=== PATIENT | female | born 1990 | race Caucasian/White ===

== ENCOUNTER 2017-02-07 14:16 | Emergency (ER) | payer BC, MEDICAID, OTHER ==
[~2017-02-07] VITALS: Ht 160 cm; Wt 72.6 kg
[~2017-02-07 14:16] MED LIST: ADDE10CA3; ADDE10TA OR; ADDERALL PO; ANTIDEPRESSANT; CELE20TA; CLON0.5T PO; DOCU10CA PO; EFFE75CA75 PO; NATURAL LAXATIVE PO; ORTHTAB5 PO; PRENTAB7 PO; PRIL20CA9 PO
[2017-02-07] MEDS ORDERED: CLEO300C2 PO (16:07)
[2017-02-07] MEDS ORDERED: NORCOTAB PO (16:07)
[2017-02-07] MEDS ORDERED: IBUP600T26 PO (16:07)
[2017-02-07] MEDS ORDERED: NORCO, ANEXSIA 5/325MG TABLET (HYDROcodone/ACETAMINOPHEN) PO ONE (16:15)
[2017-02-07] MEDS ORDERED: CLINDAMYCIN 300 MG in APPROPRIATE DILUENT 1 EA IV ONE (16:15)
[2017-02-07] MEDS ORDERED: IBUPROFEN 600 MG TAB PO ONE (16:15)
[2017-02-07] MEDS ORDERED: CLINDAMYCIN 150 MG CAP PO ONE (16:30)
[2017-02-07 16:33] VITALS: BP 131/86
== END 2017-02-07 16:38 | disposition home or self-care (01) ==
LOC: M ED 15:38
DX: K03.9 Disease of hard tissues of teeth, unspecified (principal); G50.1 Atypical facial pain; F17.200 Nicotine dependence, unspecified, uncomplicated; B19.20 Unspecified viral hepatitis C without hepatic coma; Z88.0 Allergy status to penicillin; Z91.040 Latex allergy status

== ENCOUNTER → 2017-03-09 | Outpatient (CLI) | payer MEDICAID ==
[~2017-03-09] MED LIST changes: +CLEO300C2 PO; +IBUP600T26 PO; +NORCOTAB PO
== END ==
LOC: M OUTALCOH 07:53
PROVIDERS: ATTEND Psychiatry & Neurology Psychiatry
DX: F10.10 Alcohol abuse, uncomplicated (principal); F15.20 Other stimulant dependence, uncomplicated

== ENCOUNTER 2017-03-18 10:30 | Outpatient (RCR) | payer MEDICAID ==
[~2017-03-18 10:30] MED LIST changes: +IBUP-1022 PO; -IBUP600T26 PO; +ORTHTAB14 PO; -ORTHTAB5 PO
== END 2017-03-25 ==
LOC: M OUTALCOH 10:30
PROVIDERS: ATTEND Psychiatry & Neurology Psychiatry
DX: F10.20 Alcohol dependence, uncomplicated (principal); F15.20 Other stimulant dependence, uncomplicated

== ENCOUNTER 2017-10-22 15:35 | Emergency (ER) | payer MEDICAID, OTHER ==
[2017-10-22 16:21] LABS: HEMATOCRIT 42.7 % (36.0-47.0); HEMOGLOBIN 14.8 g/dl (12.0-16.0); MEAN CORPUSCULAR HEMOGLOBIN 31.1 pg (27.0-33.0); MEAN CORPUSCULAR HGB CONC 34.7 g/dl (32.0-36.5); MEAN CORPUSCULAR VOLUME 89.7 fl (80.0-96.0); PLATELET COUNT, AUTOMATED 367 10^3/uL (150-450); RED BLOOD COUNT 4.76 10^6/uL (4.00-5.40); RED CELL DISTRIBUTION WIDTH 12.6 % (11.5-14.5)
[2017-10-22 16:41] LABS: CONTROL LINE HCG INT CTR LINE PRESENT; HCG, SERUM QUALITATIVE NEGATIVE (NEGATIVE)
[2017-10-22] MEDS: THIAMINE 100 MG TAB PO (16:45)
[2017-10-22] MEDS: NS 1,000 ML IV ×3 (16:46→23:07)
[2017-10-22 16:52] LABS: ALBUMIN 3.9 GM/DL (3.2-5.2); ALBUMIN/GLOBULIN RATIO 1.18 (1.00-1.93); ALKALINE PHOSPHATASE 119 U/L (45-117); ALT/SGPT 28 U/L (12-78); ANION GAP 9 MEQ/L (8-16); AST/SGOT 20 U/L (7-37); BILIRUBIN,DIRECT < 0.1 MG/DL (0.0-0.2); BILIRUBIN,TOTAL 0.2 MG/DL (0.2-1.0); BLOOD UREA NITROGEN 8 MG/DL (7-18); CALCIUM LEVEL 8.6 MG/DL (8.5-10.1); CARBON DIOXIDE LEVEL 28 MEQ/L (21-32); CHLORIDE LEVEL 110 MEQ/L (98-107); CREATININE FOR GFR 0.71 MG/DL (0.55-1.02); ETHYL ALCOHOL (ETHANOL) 0.323 % (0.000-0.010); GLOMERULAR FILTRATION RATE > 60.0 (>60); GLUCOSE, FASTING 93 MG/DL (70-100); POTASSIUM SERUM 4.4 MEQ/L (3.5-5.1); SALICYLATE LEVEL < 1.7 MG/DL (5.0-30.0); SODIUM LEVEL 147 MEQ/L (136-145); TOTAL PROTEIN 7.2 GM/DL (6.4-8.2)
[2017-10-22 16:55] LABS: ACETAMINOPHEN LEVEL < 2.0 UG/ML (10.0-30.0)
[2017-10-22 17:33] LABS: AMPHETAMINES LEVEL URINE NEGATIVE (NEGATIVE); BARBITURATES URINE NEGATIVE (NEGATIVE); BENZODIAZEPINES URINE NEGATIVE (NEGATIVE); CANNABINOIDS URINE NEGATIVE (NEGATIVE); COCAINE METABOLITE URINE NEGATIVE (NEGATIVE); METHADONE URINE NEGATIVE (NEGATIVE); OPIATES URINE NEGATIVE (NEGATIVE); PHENCYCLIDINE URINE NEGATIVE (NEGATIVE)
[2017-10-23] MEDS: OXAZEPAM 15 MG CAP PO (00:06)
== END 2017-10-23 03:59 | disposition home or self-care (01) ==
LOC: M ED 10-23 03:59
DX: F10.129 Alcohol abuse with intoxication, unspecified (principal); F19.10 Other psychoactive substance abuse, uncomplicated; Z86.19 Personal history of other infectious and parasitic diseases; Z91.5 Personal history of self-harm; Z79.899 Other long term (current) drug therapy; Z88.0 Allergy status to penicillin; Z91.040 Latex allergy status
CPT/HCPCS: G0480

== ENCOUNTER 2018-03-26 14:05 | Inpatient (IN) | payer OTHER, MEDICAID ==
[2018-03-26] MEDS: KETOROLAC 30 MG/ML VIAL (J1885) IV (15:49)
[2018-03-26] MEDS: ONDANSETRON 4MG/2ML VIAL (J2405) IV (15:49)
[2018-03-26] MEDS: NS 1,000 ML IV ×2 (15:49→21:27)
[2018-03-26] MEDS: GASTROGRAFIN SOLUTION 30ML PO ×2 (15:56→16:30)
[2018-03-26 16:00] LABS: BASO % 0.3 % (0.0-1.0); EOS # 0.2 10^3/uL (0.0-0.50); EOS % 1.7 % (0.0-3.0); HEMATOCRIT 38.5 % (36.0-47.0); HEMOGLOBIN 12.8 g/dl (12.0-15.5); IMMATURE GRANULOCYTE % 0.7 % (0-3.0); LYMPH # 2.7 10^3/uL (1.5-6.5); LYMPH % 21.2 % (24.0-44.0); MEAN CORPUSCULAR HGB CONC 33.2 g/dl (32.0-36.5); MEAN CORPUSCULAR VOLUME 93.2 fl (80.0-96.0); MONO # 0.6 10^3/uL (0.0-0.8); MONO % 4.9 % (0.0-5.0); NEUTROPHILS # 9.2 10^3/uL (1.8-7.7); NEUTROPHILS % 71.2 % (36.0-66.0); PLATELET COUNT, AUTOMATED 227 10^3/uL (150-450); RED BLOOD COUNT 4.13 10^6/uL (4.00-5.40); RED CELL DISTRIBUTION WIDTH 12.9 % (11.5-14.5); WHITE BLOOD COUNT 12.9 10^3/uL (4.0-10.0)
[2018-03-26 16:05] LABS: KETONE, URINE AUTO RFX TRACE mg/dL (NEGATIVE); LEUKOCYTE ESTERASE UR AUTO RFX 1+ (NEGATIVE); MUCUS, URINE RFX SMALL (NEGATIVE); NITRITE, URINE AUTO RFX NEGATIVE (NEGATIVE); RBC, URINE AUTO RFX 6 /HPF (0-3); SPECIFIC GRAVITY UR AUTO RFX 1.027 (1.002-1.035); SQUAM EPITHELIAL CELL UR AURFX 31 /HPF (0-6); WBC, URINE AUTO RFX 19 /HPF (0-3)
[2018-03-26 16:20] LABS: ERYTHROCYTE SEDIMENTATION RATE 67 mm/hr (0-20)
[2018-03-26 16:29] LABS: LACTIC ACID SEPSIS PROTOCOL 1.9 MMOL/L (0.4-2.0)
[2018-03-26 16:37] LABS: ALBUMIN 3.2 GM/DL (3.2-5.2); ALBUMIN/GLOBULIN RATIO 0.78 (1.00-1.93); ALKALINE PHOSPHATASE 96 U/L (45-117); ALT/SGPT 59 U/L (12-78); ANION GAP 9 MEQ/L (8-16); AST/SGOT 26 U/L (7-37); BILIRUBIN,TOTAL 0.6 MG/DL (0.2-1.0); BLOOD UREA NITROGEN 9 MG/DL (7-18); CALCIUM LEVEL 8.4 MG/DL (8.5-10.1); CARBON DIOXIDE LEVEL 25 MEQ/L (21-32); CHLORIDE LEVEL 108 MEQ/L (98-107); CREATININE FOR GFR 0.86 MG/DL (0.55-1.30); GLOMERULAR FILTRATION RATE > 60.0 (>60); GLUCOSE, FASTING 101 MG/DL (70-100); LIPASE 63 U/L (73-393); POTASSIUM SERUM 3.7 MEQ/L (3.5-5.1); SODIUM LEVEL 142 MEQ/L (136-145); TOTAL PROTEIN 7.3 GM/DL (6.4-8.2)
[2018-03-26] MEDS ORDERED: ISOVUE-370 76% 100ML VIAL (Q9967) As Ordered (16:52)
[2018-03-26] MEDS: diphenhydrAMINE INJ 50MG/ML VIAL (J1200) IV (17:10)
[2018-03-26 17:22] LABS: CONTROL LINE HCG INT CTR LINE PRESENT; HCG, SERUM QUALITATIVE NEGATIVE (NEGATIVE)
[2018-03-26] MEDS: LevoFLOXacin IV 750 MG in APPROPRIATE DILUENT 1 EA IV (19:42)
[2018-03-26] MEDS ORDERED: ACETAMINOPHEN TAB 650MG DOSE (2X325MG) PO (20:45)
[2018-03-26] MEDS ORDERED: ONDANSETRON 4MG/2ML VIAL (J2405) IV (20:45)
[2018-03-26] MEDS ORDERED: cloNIDine 0.1 MG TAB PO (22:00)
[2018-03-26] MEDS: cefTRIAXone SOD 1 GM in D5W MINI-BAG PLUS 50 ML IV (22:49)
[2018-03-26] MEDS: OLANZapine 5 MG TAB PO (23:07)
[2018-03-26] MEDS: GABAPENTIN 300 MG CAP PO (23:07)
[2018-03-26] MEDS: metroNIDAZOLE 500 MG in APPROPRIATE DILUENT 1 EA IV (23:35)
[2018-03-27] MEDS: NS 1,000 ML IV ×2 (06:59→18:34)
[2018-03-27] MEDS: metroNIDAZOLE 500 MG in APPROPRIATE DILUENT 1 EA IV ×3 (06:59→23:15)
[2018-03-27 07:00] LABS: BASO % 0.4 % (0.0-1.0); EOS # 0.3 10^3/uL (0.0-0.50); EOS % 3.5 % (0.0-3.0); HEMATOCRIT 34.5 % (36.0-47.0); HEMOGLOBIN 11.5 g/dl (12.0-15.5); IMMATURE GRANULOCYTE % 0.6 % (0-3.0); LYMPH # 1.8 10^3/uL (1.5-6.5); LYMPH % 22.2 % (24.0-44.0); MEAN CORPUSCULAR HEMOGLOBIN 31.1 pg (27.0-33.0); MEAN CORPUSCULAR HGB CONC 33.3 g/dl (32.0-36.5); MEAN CORPUSCULAR VOLUME 93.2 fl (80.0-96.0); MONO # 0.5 10^3/uL (0.0-0.8); NEUTROPHILS # 5.5 10^3/uL (1.8-7.7); NEUTROPHILS % 67.3 % (36.0-66.0); PLATELET COUNT, AUTOMATED 209 10^3/uL (150-450); RED CELL DISTRIBUTION WIDTH 12.7 % (11.5-14.5); WHITE BLOOD COUNT 8.1 10^3/uL (4.0-10.0)
[2018-03-27 07:21] LABS: ANION GAP 9 MEQ/L (8-16); BLOOD UREA NITROGEN 10 MG/DL (7-18); CALCIUM LEVEL 8.1 MG/DL (8.5-10.1); CARBON DIOXIDE LEVEL 23 MEQ/L (21-32); CHLORIDE LEVEL 113 MEQ/L (98-107); CREATININE FOR GFR 0.82 MG/DL (0.55-1.30); GLOMERULAR FILTRATION RATE > 60.0 (>60); GLUCOSE, FASTING 103 MG/DL (70-100); POTASSIUM SERUM 3.7 MEQ/L (3.5-5.1); SODIUM LEVEL 145 MEQ/L (136-145)
[2018-03-27] MEDS: cefTRIAXone SOD 1 GM in D5W MINI-BAG PLUS 50 ML IV ×2 (10:00→21:42)
[2018-03-27] MEDS: GABAPENTIN 300 MG CAP PO ×3 (10:01→21:41)
[2018-03-27] MEDS: FLUoxetine 20 MG CAP PO (10:01)
[2018-03-27] MEDS: lamoTRIgine 100MG TAB PO (10:01)
[2018-03-27] MEDS: ENOXAPARIN 40 MG/0.4 ML SYRINGE (J1650) SC (10:01)
[2018-03-27 15:55] LABS: AMPHETAMINES URINE REFLEX NEGATIVE (NEGATIVE); BARBITURATES URINE REFLEX NEGATIVE (NEGATIVE); BENZODIAZEPINES URINE REFLEX NEGATIVE (NEGATIVE); CANNABINOIDS URINE REFLEX NEGATIVE (NEGATIVE); COCAINE METABOLITE URINE REFLE NEGATIVE (NEGATIVE); METHADONE URINE REFLEX NEGATIVE (NEGATIVE); PHENCYCLIDINE URINE REFLEX NEGATIVE (NEGATIVE)
[2018-03-27 16:16] LABS: OPIATES URINE REFLEX PENDING CONFIRMATION (NEGATIVE)
[2018-03-27] MEDS: OLANZapine 5 MG TAB PO (21:41)
[2018-03-28 06:28] LABS: BASO # 0.1 10^3/uL (0.0-0.2); BASO % 0.7 % (0.0-1.0); EOS # 0.4 10^3/uL (0.0-0.50); EOS % 4.4 % (0.0-3.0); HEMATOCRIT 33.1 % (36.0-47.0); HEMOGLOBIN 11.2 g/dl (12.0-15.5); IMMATURE GRANULOCYTE % 1.2 % (0-3.0); LYMPH # 2.2 10^3/uL (1.5-6.5); LYMPH % 25.8 % (24.0-44.0); MEAN CORPUSCULAR HEMOGLOBIN 31.3 pg (27.0-33.0); MEAN CORPUSCULAR HGB CONC 33.8 g/dl (32.0-36.5); MEAN CORPUSCULAR VOLUME 92.5 fl (80.0-96.0); MONO # 0.5 10^3/uL (0.0-0.8); NEUTROPHILS # 5.3 10^3/uL (1.8-7.7); NEUTROPHILS % 61.9 % (36.0-66.0); PLATELET COUNT, AUTOMATED 230 10^3/uL (150-450); RED BLOOD COUNT 3.58 10^6/uL (4.00-5.40); RED CELL DISTRIBUTION WIDTH 12.7 % (11.5-14.5); WHITE BLOOD COUNT 8.6 10^3/uL (4.0-10.0)
[2018-03-28] MEDS: metroNIDAZOLE 500 MG in APPROPRIATE DILUENT 1 EA IV (06:40)
[2018-03-28 06:43] LABS: ANION GAP 10 MEQ/L (8-16); BLOOD UREA NITROGEN 2 MG/DL (7-18); CALCIUM LEVEL 8.1 MG/DL (8.5-10.1); CARBON DIOXIDE LEVEL 24 MEQ/L (21-32); CHLORIDE LEVEL 111 MEQ/L (98-107); CREATININE FOR GFR 0.67 MG/DL (0.55-1.30); GLOMERULAR FILTRATION RATE > 60.0 (>60); GLUCOSE, FASTING 120 MG/DL (70-100); HCG, SERUM QUANTITATIVE < 1.0 MIU/ML; POTASSIUM SERUM 3.3 MEQ/L (3.5-5.1); SODIUM LEVEL 145 MEQ/L (136-145)
[2018-03-28] MEDS: FLUoxetine 20 MG CAP PO (09:38)
[2018-03-28] MEDS: GABAPENTIN 300 MG CAP PO (09:38)
[2018-03-28] MEDS: lamoTRIgine 100MG TAB PO (09:38)
[2018-03-28] MEDS: ENOXAPARIN 40 MG/0.4 ML SYRINGE (J1650) SC (09:39)
[2018-03-28] MEDS: cefTRIAXone SOD 1 GM in D5W MINI-BAG PLUS 50 ML IV (09:56)
== END 2018-03-28 13:00 | disposition home or self-care (01) | DRG 137 ==
LOC: M ED 14:05 → M ED INP 20:37 → M MS5PR 22:15
DX: J69.0 Pneumonitis due to inhalation of food and vomit (principal); K76.0 Fatty (change of) liver, not elsewhere classified; N20.0 Calculus of kidney; F11.10 Opioid abuse, uncomplicated; F31.9 Bipolar disorder, unspecified; B18.2 Chronic viral hepatitis C; Z79.899 Other long term (current) drug therapy; Z88.0 Allergy status to penicillin; Z91.040 Latex allergy status

== ENCOUNTER 2018-10-01 14:57 | Emergency (ER) | payer OTHER ==
[~2018-10-01] VITALS: Ht 160 cm; Wt 77.3 kg
[~2018-10-01 14:57] MED LIST changes: +ACAM0.05 PO; +ADDE30CA3 PO; +CEFU50TA PO; +CLON-412 PO; -CLON0.5T PO; +CLON0.5T8 PO; +EFFE75CA2 PO; -EFFE75CA75 PO; +FLAG500T PO; +GABA-843 PO; +LAMI1TAB7 PO; +ORTH1TAB16 PO; -ORTHTAB14 PO; +OXAZ30CA2 PO; +PROZ20CA11 PO; +ZYPR5TAB2 PO
[2018-10-01] MEDS ORDERED: SUBO12MI SL (15:03)
[2018-10-01] MEDS ORDERED: CLEO300C2 PO (15:47)
[2018-10-01] MEDS ORDERED: BACT2CRE TOP (18:44)
[2018-10-01] MEDS ORDERED: ZOFR4TAB14 PO (18:44)
[2018-10-01] MEDS ORDERED: BENA25CA4 PO (18:44)
[2018-10-01 18:45] VITALS: BP 123/66
--- NOTE | 2018-10-01 19:38 | REPVR ---
EXAM: US TRANSABD PLUS DETAILED EVAL FIRST GEST EXAM DATE/TIME: 10/01/2018 6:02 PM CLINICAL HISTORY: 28 years old, female; Screening exam; Routine US, uterus; Patient HX: Drug and alcohol abuse, no anatomy scan performed yet; Additional info: 7 months TECHNIQUE: Real-time transabdominal obstetrical ultrasound of the maternal pelvis and a first trimester with image documentation. COMPARISON: US OBS FOLL UP OR REPEAT EACH GES 12/31/2014 2:07 PM FINDINGS: Biometry BPD = 6.4cm; Estimated Menstrual Age = 25w5d; Range = +/- [id number] HC = 23.3 cm; Estimated Menstrual Age = 25w2d; Range =+/- [id number] AC = 21.1cm; Estimated Menstrual Age = 25w 4d; Range = +/-[id number]-37C9W FL = 4.8 cm; Estimated Menstrual Age = 26w1d; Range = +/- [id number]-63U1U HC/AC Ratio = 1.1 (1.01-1.20) EFW = 853 g equals 47th percentile Cervix = 3.6 cm in length and closed Presentation: Cephalic CAROL= 11.5 (9.7-22.2) Placenta: Posterior. Venous lakes are noted within the placenta. HR = 133 bpm Biophysical profile: Breathing = 2 Movement = 2 Tone = 2 Amniotic fluid volume = 2 Survey Lateral ventricles = choroid plexus cyst in the atrium measuring 0.6 x 0.3 cm Posterior fossa = normal Spine = normal Heart = normal RVOT = normal LVOT = normal Diaphragm = normal Stomach = normal Kidneys = normal Bladder = normal 4 extremities = normal Abdominal CORD insertion = normal 3 vessel CORD = normal Face/nose/lips = normal IMPRESSION: 1. Single live intrauterine with an estimated menstrual age of 25 weeks and 4 days. Expected date of delivery 01/10/2019. 2. Normal anatomical survey. 3. Normal biophysical profile. Electronically signed by: Madeline Sargent On 10/01/2018 19:37:59 PM
== END 2018-10-01 18:50 | disposition home or self-care (01) ==
LOC: M ED 14:57
DX: O99.713 Diseases of the skin and subcutaneous tissue complicating pregnancy, third trimester (principal); L02.831 Carbuncle of head [any part, except face]; F11.20 Opioid dependence, uncomplicated; Z3A.25 25 weeks gestation of pregnancy; O99.342 Other mental disorders complicating pregnancy, second trimester; F33.9 Major depressive disorder, recurrent, unspecified; Z88.0 Allergy status to penicillin; Z91.040 Latex allergy status; Z79.899 Other long term (current) drug therapy

== ENCOUNTER → 2018-10-24 | Outpatient (CLI) | payer OTHER ==
[~2018-10-24] MED LIST changes: +BACT2CRE TOP; +BENA25CA4 PO; +SUBO12MI SL; +ZOFR4TAB14 PO
[2018-10-24 18:42] LABS: BASO % 0.3 % (0.0-1.0); EOS # 0.1 10^3/uL (0.0-0.50); EOS % 1.8 % (0.0-3.0); HEMATOCRIT 31.9 % (36.0-47.0); HEMOGLOBIN 10.6 g/dl (12.0-15.5); LYMPH # 1.6 10^3/uL (1.5-6.5); LYMPH % 22.9 % (24.0-44.0); MEAN CORPUSCULAR HEMOGLOBIN 30.6 pg (27.0-33.0); MEAN CORPUSCULAR HGB CONC 33.2 g/dl (32.0-36.5); MEAN CORPUSCULAR VOLUME 92.2 fl (80.0-96.0); MONO # 0.5 10^3/uL (0.0-0.8); NEUTROPHILS # 4.8 10^3/uL (1.8-7.7); NEUTROPHILS % 67.4 % (36.0-66.0); PLATELET COUNT, AUTOMATED 232 10^3/uL (150-450); RED BLOOD COUNT 3.46 10^6/uL (4.00-5.40); WHITE BLOOD COUNT 7.2 10^3/uL (4.0-10.0)
[2018-10-24 21:29] LABS: CHLAMYDIA DNA AMPLIFICATION NEGATIVE (NEGATIVE); GC DNA AMPLIFICATION NEGATIVE (NEGATIVE)
[2018-10-25 11:27] LABS: HIV 1&2 SCREEN CENTAUR NEGATIVE (NEGATIVE); RUBELLA IgG QUALITATIVE IMMUNE (IMMUNE)
[2018-10-25 11:29] LABS: HEPATITIS C VIRUS ABY INDEX > 11.0 INDEX (<0.8)
== END ==
LOC: M SMT 13:49
PROVIDERS: ATTEND Advanced Practice Midwife
DX: Z36.89 Encounter for other specified antenatal screening (principal); Z3A.22 22 weeks gestation of pregnancy

== ENCOUNTER → 2018-10-24 | Outpatient (CLI) | payer OTHER ==
[2018-10-24 18:31] LABS: ALBUMIN 2.9 GM/DL (3.2-5.2); ALT/SGPT 47 U/L (12-78); BILIRUBIN,TOTAL 0.3 MG/DL (0.2-1.0); BLOOD UREA NITROGEN 8 MG/DL (7-18); CALCIUM LEVEL 8.2 MG/DL (8.5-10.1); CARBON DIOXIDE LEVEL 24 MEQ/L (21-32); CHLORIDE LEVEL 104 MEQ/L (98-107); CREATININE FOR GFR 0.52 MG/DL (0.55-1.30); GLOMERULAR FILTRATION RATE > 60.0 (>60); GLUCOSE, FASTING 70 MG/DL (70-100); POTASSIUM SERUM 4.1 MEQ/L (3.5-5.1); SODIUM LEVEL 137 MEQ/L (136-145); TOTAL PROTEIN 6.1 GM/DL (6.4-8.2)
[2018-10-25 10:02] LABS: HEPATITIS B SURFACE ANTIBODY POSITIVE (POSITIVE)
== END ==
LOC: M SMT 13:52
PROVIDERS: ATTEND Advanced Practice Midwife
DX: Z36.89 Encounter for other specified antenatal screening (principal); Z3A.00 Weeks of gestation of pregnancy not specified

== ENCOUNTER → 2018-11-08 | Outpatient (CLI) | payer OTHER | LOC: M SMT 13:03 | PROVIDERS: ATTEND Advanced Practice Midwife | DX: Z34.82 Encounter for supervision of other normal pregnancy, second trimester (principal); Z36.89 Encounter for other specified antenatal screening ==

== ENCOUNTER → 2018-12-07 | Outpatient (REF) | payer OTHER, MEDICAID | LOC: M LAB REF 17:33 | PROVIDERS: ATTEND Advanced Practice Midwife | DX: O98.413 Viral hepatitis complicating pregnancy, third trimester (principal) ==

== ENCOUNTER 2018-12-31 13:12 | Inpatient (IN) | payer MEDICAID, OTHER ==
[~2018-12-31] VITALS: Ht 160 cm; Wt 79.0 kg
[2018-12-31] VITALS (14 sets, daily range): BP systolic 94–140; BP diastolic 52–86
[~2018-12-31 13:12] MED LIST changes: +HYDR-3715 PO; -NORCOTAB PO
[2018-12-31] MEDS ORDERED: PRENTAB9 PO (13:45)
[2018-12-31] MEDS ORDERED: MAPA500T2 PO (13:45)
[2018-12-31] MEDS ORDERED: TUMS500C PO (13:45)
[2018-12-31] MEDS ORDERED: LACTATED RINGER'S 1000 ML IV STA (15:23)
--- NOTE | 2018-12-31 15:39 | NUR ---
L&D H&P HPI: 28 year old at 40+0 weeks estimated gestation. Expected date of confinement: 12/31/18. dated by a 19 week US. Presents today for IOL at 40 weeks; elective. Denies vaginal bleeding, loss of fluid, or uterine contractions. Reports regular movement. course: 1. history of opioid addiction, undergoing treatment with Subutex 12mg qam 2. h/o PTB; 30 weeks. Did not take [place] this 3. Hepatitis C. Followed by Dr. Bahena. No current medication (will start ) 4. Late entry to care labs: Blood type A+, antibody screen negative, rubella immune, VDRL nonreactive , hepatitis B surface antigen negative, HIV negative, hepatitis C antibody negative, GC/CT negative, aneuploidy/maternal serum screening: not done, 1 hour glucose challenge test: 71, GBS negative AST 39, ALT 47, Bili total 0.3, Hep C quant: 05297, Hep C log 10 4.004 Vaccinations: Tdap 11/23/18 Flu vaccine received per pt (not from [facility] office). Radiology/OB US: no anomalies or placental abnormalities detected. History Past medical history: Hep C, bipolar, depression/anxiety, ADHD, PTSD, opioid addiction Surgical history: none Medications: PNV, Subutex, Prozac 20mg Allergies: PCN's (anaphylaxis) GOVERNMENT PROPERTY INSPECTOR history: no dysplasia or STI/gHSV OB history: 06/2011: 40 weeks 8lbs 11oz. 11/2012: 40 weeks 7lbs 12oz. 12/2014: 30 weeks, 4lb 10oz. SAB x 1, EAB x 1. Social history: see above. denies tob, etoh, or drug use (subutex only). Single; FOB not involved. Family history: hypothyroidism. Objective Vitals: Normotensive, normal heart rate, afebrile Heart: Regular rate and rhythm. No murmurs, rubs or gallops. Lungs: Clear to auscultation bilaterally. No wheezes, crackles, rales or rhonchi. Abdomen: Uterine fundal height consistent with dates. No guarding or rebound tenderness. Extremities: No clubbing, cyanosis or edema. Normal deep tendon reflexes. Sterile vaginal exam: 2 cm, 50 %effacement, -3 station, cephalic, intact External monitoring: heart rate category 1 Tocodynamometer: contractions occurring rarely Assessment/Plan 28 year old at 40+0 weeks gestation. Diagnosis: full term gestation at 40+0 weeks, elective IOL. Reassuring and maternal status. -Admit to labor and delivery with routine labs and orders -External monitoring and tocodynamometer -Pediatrics and anesthesia consultations as needed. -Start with cervical ripening (misoprostol 50mcg SL q4h until favorable cervix) Dr. Joni Hardin, DO, FACOG
[2018-12-31] MEDS ORDERED: miSOPROStol 50 MCG 1/2 TAB (S0191) As Ordered ONE (15:42)
[2018-12-31 15:45] LABS: HEMATOCRIT 33.4 % (36.0-47.0); HEMOGLOBIN 11.2 g/dl (12.0-15.5); MEAN CORPUSCULAR HEMOGLOBIN 30.2 pg (27.0-33.0); MEAN CORPUSCULAR HGB CONC 33.5 g/dl (32.0-36.5); PLATELET COUNT, AUTOMATED 263 10^3/uL (150-450); RED BLOOD COUNT 3.71 10^6/uL (4.00-5.40); WHITE BLOOD COUNT 8.7 10^3/uL (4.0-10.0)
[2018-12-31] MEDS: miSOPROStol 50 MCG 1/2 TAB (S0191) SL SCH ×3 (15:45→23:45)
[2018-12-31] MEDS ORDERED: PILL CRUSHER/CUTTER 1 EACH XX PRN (16:15)
[2018-12-31] MEDS: LR 1,000 ML IV SCH (16:18)
[2018-12-31 16:22] LABS: AMPHETAMINES URINE REFLEX NEGATIVE (NEGATIVE); BARBITURATES URINE REFLEX NEGATIVE (NEGATIVE); BENZODIAZEPINES URINE REFLEX NEGATIVE (NEGATIVE); COCAINE METABOLITE URINE REFLE NEGATIVE (NEGATIVE); METHADONE URINE REFLEX NEGATIVE (NEGATIVE); OPIATES URINE REFLEX NEGATIVE (NEGATIVE); PHENCYCLIDINE URINE REFLEX NEGATIVE (NEGATIVE)
[2018-12-31 16:37] LABS: CANNABINOIDS URINE REFLEX PENDING CONFIRMATION (NEGATIVE)
--- NOTE | 2018-12-31 22:27 | NUR ---
Progress Note Pt feeling more uncomfortable with contractions. No LOF/VB. +FM. Requesting epidural. VSS, af SVE: /-2, cephalic, intact EFM: Cat I [place]: ctxs every 2-4min A/P: Approaching active labor. Reassuring maternal and status. -Anesthesia notified. -Start Pitocin 4 hours after last dose of cytotec. Eugenio Hardin DO
[2018-12-31] MEDS ORDERED: OXYTOCIN DRIP 30 UNITS in APPROPRIATE DILUENT 1 EA IV SCH (22:30)
[2018-12-31] MEDS ORDERED: FENTANYL 2MCG/ML ROPIVACAINE 0.2% IN 0.9% NACL 100ML IVBAG As Ordered ONE (23:03)
[2018-12-31] MEDS: FENTANYL/ROPIVACAINE/NACL BAG 100 ML EPIDURAL SCH (23:45)
[2018-12-31] MEDS ORDERED: NALOXONE INJ 0.4 MG/1 ML VIAL (J2310) IV PRN (23:45)
[2018-12-31] MEDS ORDERED: REFRIGERATOR IV KEYS XX PRN (23:45)
[2018-12-31] MEDS ORDERED: ONDANSETRON 4MG/2ML VIAL (J2405) IV PRN (23:45)
[2018-12-31] MEDS ORDERED: diphenhydrAMINE INJ 50MG/ML VIAL (J1200) IV PRN (23:45)
[2018-12-31] MEDS ORDERED: EPIDURAL/PCA KEYS XX PRN (23:45)
[2018-12-31] MEDS ORDERED: LACTATED RINGER'S 1000 ML IV PRN (23:45)
[2018-12-31] MEDS ORDERED: EPIDURAL COMMENT XX SCH (23:45)
[2019-01-01] VITALS (32 sets, daily range): BP systolic 78–117; BP diastolic 42–69
[2019-01-01] MEDS: LR 1,000 ML IV SCH
[2019-01-01] MEDS: ePHEDrine SULFATE 25 MG/5 ML(5MG/ML) SYRINGE IV PRN ×2 (03:32→05:33)
[2019-01-01] MEDS: miSOPROStol 50 MCG 1/2 TAB (S0191) SL SCH (03:45)
--- NOTE | 2019-01-01 06:38 | NUR ---
Progress Note Pt comfortable with epidural. No VB/LOF. VSS,normotensive, normal HR, afebrile SVE: 4cm/75%/-2, intact, cephalic AROM, clear. EFM: Cat I [place]: ctxs every 3-4 min; pit at 8mU/min A/P: Reassuring maternal and status -Continue Pitocin Eugenio Hardin DO
[2019-01-01] MEDS: FENTANYL/ROPIVACAINE/NACL BAG 100 ML EPIDURAL SCH (07:38)
[2019-01-01] MEDS ORDERED: OXYTOCIN DRIP 30 UNITS in APPROPRIATE DILUENT 1 EA IV SCH (10:39)
[2019-01-01] MEDS ORDERED: RHOGAM 300 MCG (1500 IU) INJ (J2790) IM SCH (10:45)
[2019-01-01] MEDS ORDERED: DOCUSATE SODIUM 100 MG CAP PO PRN (10:45)
[2019-01-01] MEDS ORDERED: ANUSOL HC CREAM 30GM TOP PRN (10:45)
[2019-01-01] MEDS ORDERED: MEASLES,MUMPS,RUBELLA VACCINE INJ (MMR-II) (90707) SC SCH (10:45)
[2019-01-01] MEDS ORDERED: METHYLERGONOVINE MALEATE 0.2 MG TAB PO PRN (10:45)
[2019-01-01] MEDS ORDERED: DIBUCAINE 1% OINTMENT 30GM TOP PRN (10:45)
[2019-01-01] MEDS: IBUPROFEN 800 MG TAB PO PRN ×2 (11:01→22:57)
--- NOTE | 2019-01-01 11:10 | DNPDOC ---
[facility] Delivery Note Delivery Note DATE OF DELIVERY: 01/01/2019 at 0934 PREDELIVERY DIAGNOSIS: 40-1/7 weeks' gestation and labor. POST DELIVERY DIAGNOSIS: Delivered. PROCEDURE: Spontaneous vaginal delivery. 3RD MATE: Jai Garcia CNM, [place] ANESTHESIA: epidural. ESTIMATED BLOOD LOSS: 150 mL. FINDINGS: 7 pounds 11 ounces; 3490 grams; female , Score 8/9, cord around leg x2; taking Subutex daily for opiate addiction, meconium. DELIVERY SUMMARY: Patient is now a at 40 weeks 1 day gestation who presented for IOL. She progressed to fully at 0907 and pushed to a living female in the ROP position with restitution to ROT at 0934. The anterior shoulder delivered with ease and the corpus immediately followed. A cord was noted around the leg x2. The baby was placed on the maternal abdomen active and crying with stimulation. The cord was clamped x2 after 1 minute and cut by the patient's father. A 3-vessel cord was noted. The placenta delivered spontaneous and intact at 0937. Uterine hemostasis was achieved via rapid infusion of IV Pitocin and fundal massage. The vagina and perineum were inspected and found to be intact. The patient plans on naming her daughter "Eloise." She plans to formula feed. Both mom and baby are in stable condition. JAI GARCIA CNM Jan 01, 2019 11:09
[2019-01-01] MEDS ORDERED: SLF 3 ML SYR IV PRN (12:30)
[2019-01-01] MEDS: SLF 3 ML SYR IV SCH ×2 (16:33→22:58)
[2019-01-01] MEDS: ACETAMINOPHEN 500 MG TAB PO PRN (16:33)
[2019-01-01] MEDS: FLUoxetine 20 MG CAP PO SCH (20:48)
[2019-01-02 06:00] VITALS: BP 94/68
[2019-01-02] MEDS: SLF 3 ML SYR IV SCH (06:40)
[2019-01-02] MEDS: ACETAMINOPHEN 500 MG TAB PO PRN (06:44)
[2019-01-02] MEDS: PRENATAL VITAMINS CHEWABLE TABLET PO SCH (08:34)
[2019-01-02] MEDS: IBUPROFEN 800 MG TAB PO PRN (17:59)
[2019-01-02 18:02] VITALS: BP 124/78
[2019-01-02] MEDS: FLUoxetine 20 MG CAP PO SCH (20:58)
[2019-01-03 06:00] VITALS: BP 100/58
[2019-01-03] MEDS: PRENATAL VITAMINS CHEWABLE TABLET PO SCH (10:05)
[2019-01-03] MEDS: IBUPROFEN 800 MG TAB PO PRN (10:05)
[2019-01-03] MEDS ORDERED: COLA100C5 PO (10:42)
[2019-01-03] MEDS ORDERED: IBUP-1114 PO (10:42)
[2019-01-04 14:37] LABS: Cannabinoid Positive (.); GC Carboxy THC 24 ng/mL (Cutoff=10)
== END 2019-01-03 13:41 | disposition home or self-care (01) | DRG 560 ==
LOC: M LDI 13:12 → M OBS 01-01 12:15
PROVIDERS: ADMIT Obstetrics & Gynecology; ATTEND Obstetrics & Gynecology
PROC: 3E0DXGC Introduction of Other Therapeutic Substance into Mouth and Pharynx, External Approach (ICD-10-PCS; 2018-12-31)
PROC: 10E0XZZ Delivery of Products of Conception, External Approach (ICD-10-PCS; principal; 2019-01-01)
DX: O48.0 Post-term pregnancy (principal); Z37.0 Single live birth; Z3A.40 40 weeks gestation of pregnancy; O09.31 Supervision of pregnancy with insufficient antenatal care, first trimester; F11.20 Opioid dependence, uncomplicated; O99.324 Drug use complicating childbirth; B18.2 Chronic viral hepatitis C; O98.42 Viral hepatitis complicating childbirth; F31.9 Bipolar disorder, unspecified; O99.344 Other mental disorders complicating childbirth; F41.9 Anxiety disorder, unspecified

== ENCOUNTER → 2019-07-06 | Outpatient (CLI) | payer OTHER ==
[~2019-07-06] MED LIST changes: +COLA100C5 PO; +IBUP-1114 PO; +MAPA500T2 PO; -ORTH1TAB16 PO; +ORTH1TAB8 PO; +PRENTAB9 PO; +TUMS500C PO
[2019-07-06 16:52] LABS: HEMATOCRIT 38.7 % (36.0-47.0); HEMOGLOBIN 13.1 g/dl (12.0-15.5); MEAN CORPUSCULAR HEMOGLOBIN 32.1 pg (27.0-33.0); MEAN CORPUSCULAR HGB CONC 33.9 g/dl (32.0-36.5); MEAN CORPUSCULAR VOLUME 94.9 fl (80.0-96.0); PLATELET COUNT, AUTOMATED 304 10^3/uL (150-450); RED BLOOD COUNT 4.08 10^6/uL (4.00-5.40); WHITE BLOOD COUNT 7.1 10^3/uL (4.0-10.0)
[2019-07-06 17:17] LABS: ALT/SGPT 53 U/L (12-78); BILIRUBIN,TOTAL 0.2 MG/DL (0.2-1.0); BLOOD UREA NITROGEN 11 MG/DL (7-18); CALCIUM LEVEL 9.4 MG/DL (8.5-10.1); CARBON DIOXIDE LEVEL 29 MEQ/L (21-32); CHLORIDE LEVEL 107 MEQ/L (98-107); CREATININE FOR GFR 0.75 MG/DL (0.55-1.30); GLOMERULAR FILTRATION RATE > 60.0 (>60); GLUCOSE, FASTING 83 MG/DL (70-100); POTASSIUM SERUM 4.1 MEQ/L (3.5-5.1); SODIUM LEVEL 142 MEQ/L (136-145); TOTAL PROTEIN 7.6 GM/DL (6.4-8.2)
[2019-07-06 18:04] LABS: HIV 1&2 SCREEN CENTAUR NEGATIVE (NEGATIVE)
[2019-07-06 19:28] LABS: HCG, SERUM QUALITATIVE NEGATIVE (NEGATIVE)
--- NOTE | 2019-07-07 10:07 | ECGEPIP ---
[facility] Test Date: 2019-07-06 Pat Name: DEE ZUÑIGA Department: Room: - Gender: Female Build Technician: ALIE : 1990 Requested By: Tony Hartmann Order Number: [id number] Reading MD: Harmony Barone Measurements Intervals [place] Rate: 61 P: 40 HI: 175 QRS: 48 QRSD: 85 T: 35 QT: 396 QTc: 402 Interpretive Statements SINUS RHYTHM WITH SINUS ARRHYTHMIA SIMILAR TO 09/01/15 BUT FOR SLOWER HR Electronically Signed on 07-07-2019 10:06:44 EDT by Harmony Barone
[2019-07-09 10:27] LABS: HEPATITIS B SURFACE ANTIGEN NEGATIVE (NEGATIVE)
[2019-07-09 11:12] LABS: HEPATITIS C VIRUS ABY INDEX > 11.0 INDEX (<0.8)
[2019-07-09 16:20] LABS: CHLAMYDIA DNA AMPLIFICATION NEGATIVE (NEGATIVE); GC DNA AMPLIFICATION NEGATIVE (NEGATIVE)
== END ==
LOC: M LAB 16:04
PROVIDERS: ATTEND Family Medicine
DX: F11.20 Opioid dependence, uncomplicated (principal)

== ENCOUNTER 2020-01-06 20:40 | Emergency (ER) | payer MEDICAID, OTHER, SELFPAY ==
[~2020-01-06] VITALS: Ht 160 cm; Wt 65.9 kg
[~2020-01-06 20:40] MED LIST changes: +CLON0.5T2 PO; -CLON0.5T8 PO
[2020-01-06 20:46] VITALS: BP 141/94
[2020-01-06] MEDS ORDERED: LORazepam 2 MG TAB PO PRN (21:00)
[2020-01-06] MEDS ORDERED: NS 1,000 ML IV ONE (21:00)
== END 2020-01-06 21:45 | disposition home or self-care (01) ==
LOC: M ED 20:40
DX: F10.129 Alcohol abuse with intoxication, unspecified (principal); F41.9 Anxiety disorder, unspecified; F32.9 Major depressive disorder, single episode, unspecified; F19.10 Other psychoactive substance abuse, uncomplicated; Z79.899 Other long term (current) drug therapy; Z88.0 Allergy status to penicillin; Z91.040 Latex allergy status

== ENCOUNTER → 2020-03-20 | Outpatient (CLI) | payer OTHER ==
[~2020-03-20] MED LIST changes: +ADDE30TA PO; +AMPH1TAB2; +ATOM80CA PO; +BUPR150T3 PO; +BUSP30TA PO; +GABA-843; +LAMO100T3 PO
[2020-03-20 13:18] LABS: BASO # 0.1 10^3/uL (0.0-0.2); BASO % 1.1 % (0.0-1.0); EOS # 0.1 10^3/uL (0.0-0.5); EOS % 2.2 % (0.0-3.0); HEMATOCRIT 39.2 % (36.0-47.0); HEMOGLOBIN 13.5 g/dl (12.0-15.5); LYMPH # 1.4 10^3/uL (1.5-5.0); LYMPH % 31.6 % (24.0-44.0); MEAN CORPUSCULAR HEMOGLOBIN 35.2 pg (27.0-33.0); MEAN CORPUSCULAR HGB CONC 34.4 g/dl (32.0-36.5); MEAN CORPUSCULAR VOLUME 102.1 fl (80.0-96.0); MONO # 0.8 10^3/uL (0.0-0.8); MONO % 17.4 % (0.0-5.0); NEUTROPHILS # 2.1 10^3/uL (1.5-8.5); NEUTROPHILS % 46.8 % (36.0-66.0); PLATELET COUNT, AUTOMATED 164 10^3/uL (150-450); RED BLOOD COUNT 3.84 10^6/uL (4.00-5.40); WHITE BLOOD COUNT 4.5 10^3/uL (4.0-10.0)
[2020-03-20 13:51] LABS: ALBUMIN 4.2 GM/DL (3.2-5.2); ALT/SGPT 251 U/L (12-78); BILIRUBIN,TOTAL 0.7 MG/DL (0.2-1.0); BLOOD UREA NITROGEN 21 MG/DL (7-18); CALCIUM LEVEL 10.3 MG/DL (8.5-10.1); CARBON DIOXIDE LEVEL 26 MEQ/L (21-32); CHLORIDE LEVEL 100 MEQ/L (98-107); CREATININE FOR GFR 0.85 MG/DL (0.55-1.30); GLOMERULAR FILTRATION RATE > 60.0 (>60); GLUCOSE, FASTING 84 MG/DL (70-100); POTASSIUM SERUM 3.5 MEQ/L (3.5-5.1); SODIUM LEVEL 138 MEQ/L (136-145); TOTAL PROTEIN 8.1 GM/DL (6.4-8.2)
[2020-03-21 10:56] LABS: HIV 1&2 SCREEN CENTAUR NEGATIVE (NEGATIVE)
[2020-03-26 14:14] LABS: HCV RNA (INTERNATIONAL UNITS) 21945000 IU/mL (.); HEPATITIS C QUANTITATION See Final Results IU/mL (.); HEPATITIS C VIRUS GENOTYPE 3 (.)
== END ==
LOC: M LAB 11:53
PROVIDERS: ATTEND Internal Medicine Infectious Disease
DX: B18.2 Chronic viral hepatitis C (principal)

== ENCOUNTER 2020-04-12 16:09 | Emergency (ER) | payer OTHER ==
[~2020-04-12] VITALS: Ht 160 cm; Wt 67.2 kg
[~2020-04-12 16:09] MED LIST changes: -ADDE30TA PO; -AMPH1TAB2; -ATOM80CA PO; -BUPR150T3 PO; -BUSP30TA PO; -GABA-843; -LAMO100T3 PO
[2020-04-12] MEDS ORDERED: AMPH1TAB2 (16:32)
[2020-04-12] MEDS ORDERED: GABA-843 (16:32)
[2020-04-12] MEDS ORDERED: LAMO100T3 PO (16:32)
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
[2020-04-12 18:31] VITALS: BP 138/82
== END 2020-04-12 18:34 | disposition home or self-care (01) ==
LOC: M ED 16:09
DX: S00.83XA Contusion of other part of head, initial encounter (principal); S40.021A Contusion of right upper arm, initial encounter; S40.022A Contusion of left upper arm, initial encounter; S80.11XA Contusion of right lower leg, initial encounter; S80.12XA Contusion of left lower leg, initial encounter; Y04.0XXA Assault by unarmed brawl or fight, initial encounter; Y92.009 Unspecified place in unspecified non-institutional (private) residence as the place of occurrence of the external cause; Y93.9 Activity, unspecified; Y99.9 Unspecified external cause status; F41.9 Anxiety disorder, unspecified; B18.2 Chronic viral hepatitis C; F17.200 Nicotine dependence, unspecified, uncomplicated; Z79.899 Other long term (current) drug therapy; Z88.0 Allergy status to penicillin; Z91.040 Latex allergy status

== ENCOUNTER 2020-06-14 17:08 | Inpatient (IN) | payer OTHER ==
[~2020-06-14] VITALS: Ht 160 cm; Wt 65.9 kg
[~2020-06-14 17:08] MED LIST changes: +AMPH1TAB2; +GABA-843; +LAMO100T3 PO
[2020-06-14 19:25] LABS: HEMOGLOBIN 14.6 g/dl (12.0-15.5); MEAN CORPUSCULAR HEMOGLOBIN 34.1 pg (27.0-33.0); MEAN CORPUSCULAR HGB CONC 33.2 g/dl (32.0-36.5); MEAN CORPUSCULAR VOLUME 102.8 fl (80.0-96.0); PLATELET COUNT, AUTOMATED 306 10^3/uL (150-450); RED BLOOD COUNT 4.28 10^6/uL (4.00-5.40); WHITE BLOOD COUNT 6.1 10^3/uL (4.0-10.0)
[2020-06-14 19:42] LABS: AMPHETAMINES LEVEL URINE NEGATIVE (NEGATIVE); BARBITURATES URINE NEGATIVE (NEGATIVE); BENZODIAZEPINES URINE NEGATIVE (NEGATIVE); CANNABINOIDS URINE NEGATIVE (NEGATIVE); COCAINE METABOLITE URINE NEGATIVE (NEGATIVE); METHADONE URINE NEGATIVE (NEGATIVE); OPIATES URINE NEGATIVE (NEGATIVE); PHENCYCLIDINE URINE NEGATIVE (NEGATIVE)
[2020-06-14 20:06] LABS: HCG, SERUM QUALITATIVE NEGATIVE (NEGATIVE)
[2020-06-14 20:12] LABS: ACETAMINOPHEN LEVEL < 2.0 UG/ML (10.0-30.0); ALBUMIN 4.2 GM/DL (3.2-5.2); ALT/SGPT 1021 U/L (12-78); BILIRUBIN,DIRECT 0.1 MG/DL (0.0-0.2); BILIRUBIN,TOTAL 0.2 MG/DL (0.2-1.0); BLOOD UREA NITROGEN 13 MG/DL (7-18); CALCIUM LEVEL 8.7 MG/DL (8.5-10.1); CARBON DIOXIDE LEVEL 31 MEQ/L (21-32); CHLORIDE LEVEL 107 MEQ/L (98-107); CREATININE FOR GFR 0.81 MG/DL (0.55-1.30); ETHYL ALCOHOL (ETHANOL) 0.349 % (0.000-0.010); GLOMERULAR FILTRATION RATE > 60.0 (>60); GLUCOSE, FASTING 87 MG/DL (70-100); POTASSIUM SERUM 3.9 MEQ/L (3.5-5.1); SALICYLATE LEVEL < 1.7 MG/DL (5.0-30.0); SODIUM LEVEL 143 MEQ/L (136-145); THYROID STIMULATING HORMONE 0.509 uIU/ML (0.358-3.740); TOTAL PROTEIN 8.6 GM/DL (6.4-8.2)
[2020-06-15] MEDS ORDERED: LORazepam 2 MG TAB PO PRN ×2 (04:15→13:15)
[2020-06-15] MEDS ORDERED: BUPR150T3 PO (05:02)
[2020-06-15] MEDS ORDERED: THIAMINE 100 MG TAB PO SCH (09:00)
[2020-06-15] MEDS ORDERED: MULTIVITAMINS/MINERALS THERAP 1 TAB PO SCH (09:00)
[2020-06-15] MEDS ORDERED: FOLIC ACID 1 MG TAB PO SCH (09:00)
[2020-06-15] MEDS ORDERED: ADDE30TA PO (09:29)
[2020-06-15] MEDS ORDERED: ATOM80CA PO (09:29)
[2020-06-15] MEDS ORDERED: ADDERALL 5 MG TAB PO ONE (10:00)
[2020-06-15] MEDS ORDERED: buPROPion **XL** TABLET 150MG (WELLBUTRIN XL) PO SCH (10:00)
[2020-06-15] MEDS ORDERED: lamoTRIgine 100MG TAB PO ONE (10:00)
[2020-06-15] MEDS ORDERED: ATOMOXETINE HCL 40 MG CAP (STRATTERA) PO ONE (10:00)
[2020-06-15] MEDS ORDERED: ATOMOXETINE HCL 40 MG CAP (STRATTERA) PO SCH (10:00)
[2020-06-15] MEDS ORDERED: busPIRone 10 MG TAB PO ONE (11:15)
[2020-06-15] MEDS ORDERED: BUSP30TA PO ×2 (11:36→11:44)
[2020-06-15] MEDS ORDERED: MOM 30ML SUSPENSION UDC PO PRN (13:15)
[2020-06-15] MEDS ORDERED: MAALOX 30 ML SUSP *UDC PO PRN (13:15)
[2020-06-15 14:37] VITALS: BP 141/96
[2020-06-15] MEDS: ADDERALL 5 MG TAB PO SCH (15:20)
[2020-06-15 15:53] VITALS: BP 141/96
[2020-06-15] MEDS ORDERED: NICOTINE 21MG/24HR 1 EA TRANSDERMAL TD ONE (16:15)
[2020-06-15] MEDS: busPIRone 10 MG TAB PO SCH (20:31)
[2020-06-15] MEDS: traZODone 50 MG TAB PO PRN (20:32)
[2020-06-15] MEDS: THIAMINE 100 MG TAB PO SCH (20:32)
[2020-06-15 22:06] VITALS: BP 135/91
[2020-06-16 06:00] VITALS: BP 131/70
[2020-06-16 06:17] VITALS: BP 131/70
[2020-06-16] MEDS: lamoTRIgine 100MG TAB PO SCH (08:07)
[2020-06-16] MEDS: busPIRone 10 MG TAB PO SCH ×2 (08:07→20:20)
[2020-06-16] MEDS: THIAMINE 100 MG TAB PO SCH ×2 (08:08→20:20)
[2020-06-16] MEDS: MULTIVITAMINS/MINERALS THERAP 1 TAB PO SCH (08:08)
[2020-06-16] MEDS: FOLIC ACID 1 MG TAB PO SCH (08:08)
[2020-06-16] MEDS: buPROPion **XL** TABLET 150MG (WELLBUTRIN XL) PO SCH (08:08)
[2020-06-16] MEDS: ADDERALL 5 MG TAB PO SCH ×2 (08:09→12:16)
[2020-06-16] MEDS: NICOTINE 21MG/24HR 1 EA TRANSDERMAL TD SCH (08:09)
[2020-06-16] MEDS ORDERED: ATOMOXETINE HCL 40 MG CAP (STRATTERA) PO SCH (09:00)
[2020-06-16 14:00] VITALS: BP 127/83
[2020-06-16 17:45] VITALS: BP 126/65
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
--- NOTE | 2020-06-16 19:53 | HPEPDOC ---
[facility] Medical History & Physical Date of Admission Jun 15, 2020 Date of Service: Jun 16, 2020 History and Physical CHIEF COMPLAINT: Alcohol intoxication and suicide ideation HISTORY OF PRESENT ILLNESS: Miss Bustamante is a 29-year-old female with history of hepatitis C who is in the inpatient mental health unit for suicide ideation and alcohol intoxication. She was seen with a female surveyor. Today she is feeling better. Denies any fever, chills, lightheadedness or dizziness, chest pain, shortness of breath, abdominal pain, diarrhea or dysuria. She feels bored in the inpatient mental health unit. She tells me what happened was she had a rough year. She is recently going through a divorce. PAST MEDICAL HISTORY: 1. Hepatitis C. 2. History of IV drug abuse. PAST SURGICAL HISTORY: 1., Tonsillectomy. SOCIAL HISTORY: She is a current smoker, smoked for about 10 years, half a pack per day. She does drink alcohol, last drink was before admission. Denies any current recreational drug use, but in the past she did IV drugs. She is currently going through a divorce FAMILY HISTORY: Father: Alive. No known medical history Mother: Alive. Carpal tunnel ALLERGIES: Please see below. REVIEW OF SYSTEMS: CONSTITUTIONAL: Denies any fever or chills. Denies lightheadedness or dizziness. ENT: Denies rhinorrhea. Denies sore throat. Denies dysphagia. RESPIRATORY: Denies shortness of breath. Denies cough. CARDIOVASCULAR: Denies chest pain. GASTROINTESTINAL: Denies abdominal pain. Denies diarrhea. Denies constipation GENITOURINARY: Denies dysuria. CUTANEOUS: Denies rashes. MUSCULOSKELETAL: Denies muscle weakness. NEUROLOGICAL: Denies neuropathy. Denies paresthesias. PSYCHOLOGICAL: She tells me that she is feeling better HOME MEDICATIONS: Please see below. PHYSICAL EXAMINATION: VITAL SIGNS: Temperature 97.9, pulse 80, respiratory rate 18, blood pressure 126/65, pulse oximetry 98 % on room air. GENERAL: Comfortable, in no apparent distress. HEENT: Head normocephalic/atraumatic, EOMI, sclera clear. NECK: Supple, no JVD. RESPIRATORY: Lungs clear to auscultation bilaterally, no rales, wheeze or rhonchi. CARDIOVASCULAR: Regular rate and rhythm. ABDOMEN: Soft, nontender, no guarding or rebound tenderness. Normal bowel sounds. MUSCLE SKELETAL: Muscle strength 5/5 in all extremities. NEUROLOGICAL: CN 312 grossly intact, no focal deficits noted. PSYCHOLOGICAL: Normal mood and affect LABORATORY DATA: See below. MICROBIOLOGY: Please see below. ASSESSMENT and PLAN: 1. Alcohol abuse. Being managed in the inpatient mental health unit. 2. Suicidal ideation. Being managed in the inpatient mental health unit. 3. Hepatitis C Never been treated for hepatitis C before. She is interested in seeing Dr. Bahena when she is discharged from the inpatient mental health unit. Thank you for consulting us. We will be signing off. If there is any questions o r concerns, feel free to reconsult us. Vital Signs Vital Signs Date Time Temp Pulse Resp B/P (MAP) Pulse Ox O2 Delivery O2 Flow Rate FiO2 06/16/20 17:45 97.9 80 18 126/65 (85) 06/16/20 06:17 98 06/14/20 19:37 Room Air Home Medications Scheduled Bupropion Hcl (Bupropion Xl) 150 Mg Tab.er.24h, 150 MG PO DAILY Buspirone HCl (Buspirone HCl) 30 Mg Tablet, 30 MG PO BID Dextroamphetamine/Amphetamine (Adderall 30 mg Tablet) 30 Mg Tablet, 30 MG PO BID 2ND DOSE IN AFTERNOON Lamotrigine (Lamotrigine) 100 Mg Tablet, 100 MG PO DAILY Allergies Coded Allergies: Penicillins (Verified Allergy, Intermediate, RASH, EDEMA, 12/31/18) latex (Verified Allergy, Intermediate, SWELLING, RASH, 12/31/18) A-FIB/CHADSVASC A-FIB History Current/History of A-Fib/PAF?: No Age/Risk Factor Scoring CHADSVASC: CHADSVASC Response (Comments) Value Age Risk Factor Age < 65 years old 0 Gender Risk Factor Female 1 Hx of CHF No 0 Hx of HTN No 0 Hx of Stroke/TIA/or VTE No 0 Hx of Diabetes No 0 Hx of Vascular Disease No 0 Total 1 FIORELLA WIN DO Jun 16, 2020 19:53
[2020-06-16] MEDS: traZODone 50 MG TAB PO PRN (21:08)
[2020-06-17 01:18] VITALS: BP 135/75
[2020-06-17 06:26] VITALS: BP 109/60
[2020-06-17] MEDS: busPIRone 10 MG TAB PO SCH (08:06)
[2020-06-17] MEDS: lamoTRIgine 100MG TAB PO SCH (08:06)
[2020-06-17] MEDS: buPROPion **XL** TABLET 150MG (WELLBUTRIN XL) PO SCH (08:07)
[2020-06-17] MEDS: MULTIVITAMINS/MINERALS THERAP 1 TAB PO SCH (08:07)
[2020-06-17] MEDS: THIAMINE 100 MG TAB PO SCH (08:07)
[2020-06-17] MEDS: FOLIC ACID 1 MG TAB PO SCH (08:07)
[2020-06-17] MEDS: ADDERALL 5 MG TAB PO SCH ×2 (08:08→12:09)
[2020-06-17] MEDS: NICOTINE 21MG/24HR 1 EA TRANSDERMAL TD SCH (08:08)
[2020-06-17] MEDS ORDERED: LAMO100T3 PO (10:21)
[2020-06-17] MEDS ORDERED: BUSP30TA PO (10:21)
[2020-06-17] MEDS ORDERED: ADDE30TA PO (10:21)
[2020-06-17] MEDS ORDERED: BUPR150T3 PO (10:25)
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
== END 2020-06-17 13:10 | disposition home or self-care (01) | DRG 753 ==
LOC: M ED 17:08 → EDBD 17:08 → M ED INP 06-15 13:01 → M PSY 06-15 14:20
PROVIDERS: ADMIT Psychiatry & Neurology Addiction Medicine; ATTEND Psychiatry & Neurology Psychiatry
DX: F31.60 Bipolar disorder, current episode mixed, unspecified (principal); F10.94 Alcohol use, unspecified with alcohol-induced mood disorder; R45.851 Suicidal ideations; Z88.0 Allergy status to penicillin; Z91.040 Latex allergy status; B18.2 Chronic viral hepatitis C; F17.200 Nicotine dependence, unspecified, uncomplicated

== ENCOUNTER → 2020-08-13 | Outpatient (CLI) | payer OTHER ==
[~2020-08-13] MED LIST changes: +ADDE30TA PO; +ATOM80CA PO; +BUPR150T3 PO; +BUSP30TA PO
== END ==
LOC: M OUTALCOH 07:52
PROVIDERS: ATTEND Psychiatry & Neurology Addiction Medicine
DX: F10.20 Alcohol dependence, uncomplicated (principal); F12.20 Cannabis dependence, uncomplicated

== ENCOUNTER → 2020-11-04 | Outpatient (CLI) | payer OTHER ==
[~2020-11-04] MED LIST changes: -BUPR150T3 PO; +BUPR150T4 PO; +GABA-282; +GABA-282 PO; -GABA-843; -GABA-843 PO
[2020-11-04 15:41] LABS: BASO % 0.7 % (0.0-1.0); EOS # 0.1 10^3/uL (0.0-0.5); EOS % 1.8 % (0.0-3.0); HEMATOCRIT 38.8 % (36.0-47.0); HEMOGLOBIN 12.7 g/dl (12.0-15.5); LYMPH % 36.7 % (24.0-44.0); MEAN CORPUSCULAR HEMOGLOBIN 33.9 pg (27.0-33.0); MEAN CORPUSCULAR HGB CONC 32.7 g/dl (32.0-36.5); MEAN CORPUSCULAR VOLUME 103.5 fl (80.0-96.0); MONO # 0.7 10^3/uL (0.0-0.8); MONO % 12.2 % (0.0-5.0); NEUTROPHILS # 2.7 10^3/uL (1.5-8.5); NEUTROPHILS % 48.2 % (36.0-66.0); PLATELET COUNT, AUTOMATED 252 10^3/uL (150-450); RED BLOOD COUNT 3.75 10^6/uL (4.00-5.40); WHITE BLOOD COUNT 5.5 10^3/uL (4.0-10.0)
[2020-11-04 16:11] LABS: ALT/SGPT 238 U/L (12-78); BILIRUBIN,TOTAL 0.2 MG/DL (0.2-1.0); BLOOD UREA NITROGEN 12 MG/DL (7-18); CALCIUM LEVEL 9.5 MG/DL (8.5-10.1); CARBON DIOXIDE LEVEL 31 MEQ/L (21-32); CHLORIDE LEVEL 98 MEQ/L (98-107); CREATININE FOR GFR 0.85 MG/DL (0.55-1.30); GLOMERULAR FILTRATION RATE > 60.0 (>60); GLUCOSE, FASTING 84 MG/DL (70-100); POTASSIUM SERUM 3.9 MEQ/L (3.5-5.1); SODIUM LEVEL 136 MEQ/L (136-145); TOTAL PROTEIN 7.7 GM/DL (6.4-8.2)
[2020-11-04 16:12] LABS: HCG, SERUM QUALITATIVE NEGATIVE (NEGATIVE)
[2020-11-04 16:18] LABS: HEPATITIS B SURFACE ANTIBODY POSITIVE (POSITIVE)
[2020-11-04 16:30] LABS: HEPATITIS B SURFACE ANTIGEN NEGATIVE (NEGATIVE)
[2020-11-04 16:58] LABS: HEPATITIS A ANTIBODY IGM NEGATIVE (NEGATIVE); HIV 1&2 SCREEN CENTAUR NEGATIVE (NEGATIVE)
[2020-11-04 17:04] LABS: HEPATITIS C VIRUS ABY INDEX > 11.0 INDEX (<0.8)
== END ==
LOC: M LAB 15:00
PROVIDERS: ATTEND Nurse Practitioner Adult Health
DX: F11.20 Opioid dependence, uncomplicated (principal); Z20.5 Contact with and (suspected) exposure to viral hepatitis; Z20.2 Contact with and (suspected) exposure to infections with a predominantly sexual mode of transmission

== ENCOUNTER 2021-03-05 21:08 | Inpatient (IN) | payer OTHER, MEDICAID ==
[~2021-03-05] VITALS: Ht 167.6 cm; Wt 64.8 kg
[~2021-03-05 21:08] MED LIST changes: +BUPR150T12 PO; -BUPR150T4 PO
[2021-03-05] MEDS ORDERED: SUBO4MIS SL (21:25)
[2021-03-05] MEDS ORDERED: BOOSTRIX/ADACEL VACCINE (DIPHTH/PERTUSS/ACELL/TETANUS) 0.5ML SYR IM ONE (21:30)
[2021-03-05] MEDS ORDERED: LIDOCAINE W/EPINEPHRINE 1% 20ML VIAL SC ONE (21:30)
[2021-03-05 21:40] LABS: HEMATOCRIT 40.1 % (36.0-47.0); HEMOGLOBIN 14.2 g/dl (12.0-15.5); MEAN CORPUSCULAR HEMOGLOBIN 34.8 pg (27.0-33.0); MEAN CORPUSCULAR HGB CONC 35.4 g/dl (32.0-36.5); MEAN CORPUSCULAR VOLUME 98.3 fl (80.0-96.0); PLATELET COUNT, AUTOMATED 238 10^3/uL (150-450); RED BLOOD COUNT 4.08 10^6/uL (4.00-5.40)
[2021-03-05 22:10] LABS: AMPHETAMINES LEVEL URINE NEGATIVE (NEGATIVE); BARBITURATES URINE NEGATIVE (NEGATIVE); BENZODIAZEPINES URINE NEGATIVE (NEGATIVE); CANNABINOIDS URINE POSITIVE (NEGATIVE); COCAINE METABOLITE URINE NEGATIVE (NEGATIVE); METHADONE URINE NEGATIVE (NEGATIVE); OPIATES URINE NEGATIVE (NEGATIVE); PHENCYCLIDINE URINE NEGATIVE (NEGATIVE)
[2021-03-05 22:24] LABS: ACETAMINOPHEN LEVEL < 2.0 UG/ML (10.0-30.0); ALBUMIN 4.3 GM/DL (3.2-5.2); ALT/SGPT 304 U/L (12-78); BILIRUBIN,DIRECT < 0.1 MG/DL (0.0-0.2); BILIRUBIN,TOTAL 0.2 MG/DL (0.2-1.0); BLOOD UREA NITROGEN 8 MG/DL (7-18); CALCIUM LEVEL 9.7 MG/DL (8.5-10.1); CARBON DIOXIDE LEVEL 25 MEQ/L (21-32); CHLORIDE LEVEL 107 MEQ/L (98-107); CREATININE FOR GFR 0.95 MG/DL (0.55-1.30); ETHYL ALCOHOL (ETHANOL) 0.104 % (0.000-0.010); GLOMERULAR FILTRATION RATE > 60.0 (>60); GLUCOSE, FASTING 97 MG/DL (70-100); POTASSIUM SERUM 3.8 MEQ/L (3.5-5.1); SALICYLATE LEVEL < 1.7 MG/DL (5.0-30.0); SODIUM LEVEL 141 MEQ/L (136-145); THYROID STIMULATING HORMONE 0.403 uIU/ML (0.358-3.740); TOTAL PROTEIN 8.4 GM/DL (6.4-8.2)
[2021-03-05 23:24] LABS: RSV AMPLIFICATION NEGATIVE (NEGATIVE)
[2021-03-06] MEDS ORDERED: IBUPROFEN 400MG TAB PO PRN (00:55)
[2021-03-06] MEDS ORDERED: MAALOX 30 ML SUSP *UDC PO PRN (00:55)
[2021-03-06] MEDS ORDERED: MOM 30ML SUSPENSION UDC PO PRN (00:55)
[2021-03-06] MEDS ORDERED: traZODone 50 MG TAB PO PRN (00:55)
[2021-03-06] MEDS ORDERED: BUPR-365 PO (01:23)
[2021-03-06] MEDS ORDERED: LAMO100T3 PO (01:23)
[2021-03-06] MEDS ORDERED: SUBO4MIS SL (01:23)
[2021-03-06] MEDS ORDERED: BUSP30TA PO (01:23)
[2021-03-06] MEDS ORDERED: ADDE30TA PO (01:23)
[2021-03-06 02:02] VITALS: BP 130/74
[2021-03-06] MEDS ORDERED: SUBO2MIS SL (08:34)
[2021-03-06] MEDS: NICOTINE 21MG/24HR 1 EA TRANSDERMAL TD SCH (08:41)
[2021-03-06] MEDS: buPROPion **XL** TABLET 150MG (WELLBUTRIN XL) PO SCH (09:24)
[2021-03-06] MEDS: lamoTRIgine 100MG TAB PO SCH (09:24)
[2021-03-06] MEDS: busPIRone 10 MG TAB PO SCH ×2 (09:24→21:09)
[2021-03-06] MEDS: BUPRENORPHINE/NALOXONE 2-0.5MG SUBLINGUAL TABLET(SUBOXONE) SL SCH (09:24)
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
--- NOTE | 2021-03-06 14:07 | HPEPDOC ---
[facility] Medical History & Physical Date of Admission Mar 05, 2021 Date of Service: Mar 06, 2021 History and Physical CHIEF COMPLAINT: suicidal ideation, right forearm laceration HISTORY OF PRESENT ILLNESS: 30-year-old female presented to the emergency department for self-inflicted laceration to her right forearm with concerns that this was a suicide attempt. . She denied laceration as a suicide attempt attributing it to an accident with a broken dish. . She notes a variety of social stressors including conflict with her boyfriend and other family members. On evaluation today, she denies chest pain, shortness of breath, abdominal pain, nausea, vomiting, diarrhea or headaches. PAST MEDICAL HISTORY: #hepatitis c #hepatitis a SOCIAL HISTORY: Admits to marijuana and alcohol abuse. Denies any other illicit drug use. Admits to nicotine abuse. FAMILY HISTORY: Mother and father still alive. Patient denies any relevant family medical history. ALLERGIES: Please see below. REVIEW OF SYSTEMS: Negative except as per HPI. HOME MEDICATIONS: Please see below. PHYSICAL EXAMINATION: VITAL SIGNS: See below General: NAD, sitting comfortably in chair HEENT: NC/AT, EOMI Lungs; CTA B/L Heart: +S1S2, RRR, -M/R/G Abd: soft, NT, +BS, no HSM Ext: no edema Psych: AAOx3 Neuro: no gross focal deficits LABORATORY DATA: See below. MICROBIOLOGY: Please see below. A/P: 30-year-old female admitted for concerns of suicidal ideation with laceration to her right forearm. #SI - follow as per primary team - psychiatry #right forearm laceration - wound care c/s pending #Hep C - states she has had no recent follow up - recommend follow up with ID - liver US pending Luis Felipe for this consultation. Please reconsult as needed. Vital Signs Vital Signs Date Time Temp Pulse Resp B/P (MAP) Pulse Ox O2 Delivery O2 Flow Rate FiO2 03/06/21 02:02 97.2 96 16 130/74 (92) 98 Room Air Laboratory Data Labs 24H Laboratory Tests 2 03/05/21 21:26: Nucleated Red Blood Cells % (auto) 0.0, Anion Gap 9, Glomerular Filtration Rate > 60.0, Calcium Level 9.7, Total Bilirubin 0.2, Direct Bilirubin < 0.1, Aspartate Amino Transf (AST/SGOT) 304H, Alanine Aminotransferase (ALT/SGPT) 304H, Alkaline Phosphatase 104, Total Protein 8.4H, Albumin 4.3, Albumin/Globulin Ratio 1.0L, Thyroid Stimulating Hormone (TSH) 0.403, Salicylates Level < 1.7L, Urine Opiates Screen NEGATIVE, Urine Methadone Screen NEGATIVE, Acetaminophen Level < 2.0L, Urine Barbiturates Screen NEGATIVE, Urine Phencyclidine Screen NEGATIVE, Urine Amphetamines Screen NEGATIVE, Urine Benzodiazepines Screen NEGATIVE, Urine Cocaine Metabolite Screen NEGATIVE, Urine Cannabinoids Screen POSITIVEH, Ethyl Alcohol Level 0.104H 03/05/21 22:38: Coronavirus (COVID-19)(PCR) NEGATIVE, Influenza Type A (RT-PCR) NEGATIVE, Influenza Type B (RT-PCR) NEGATIVE, Respiratory Syncytial Virus (PCR) NEGATIVE CBC/BMP Laboratory Tests 03/05/21 21:26 Home Medications Scheduled Buprenorphine HCl/Naloxone HCl (Suboxone 2 mg-0.5 mg Sl Film) 1 Each Film, 2 STRIP SL DAILY for . VERIFIED WITH JOSÉ MANUEL ADHIKARI AT [facility] Bupropion HCl (Bupropion Xl) 150 Mg Tab.er.24h, 150 MG PO DAILY Buspirone HCl (Buspirone HCl) 30 Mg Tablet, 30 MG PO BID Dextroamphetamine/Amphetamine (Adderall 30 mg Tablet) 30 Mg Tablet, 30 MG PO BID Lamotrigine (Lamotrigine) 100 Mg Tablet, 100 MG PO DAILY Allergies Coded Allergies: Penicillins (Verified Allergy, Intermediate, RASH, EDEMA, 12/31/18) latex (Verified Allergy, Intermediate, SWELLING, RASH, 12/31/18) A-FIB/CHADSVASC A-FIB History Current/History of A-Fib/PAF?: SRAVANI Douglas MD Mar 06, 2021 14:07
[2021-03-06] MEDS: ADDERALL 5 MG TAB PO SCH (15:01)
[2021-03-06 16:07] VITALS: BP 135/86
[2021-03-07 05:57] VITALS: BP 127/61
[2021-03-07] MEDS: lamoTRIgine 100MG TAB PO SCH (08:27)
[2021-03-07] MEDS: NICOTINE 21MG/24HR 1 EA TRANSDERMAL TD SCH (08:30)
[2021-03-07] MEDS: busPIRone 10 MG TAB PO SCH ×2 (08:30→20:43)
[2021-03-07] MEDS: ADDERALL 5 MG TAB PO SCH ×2 (08:30→12:46)
[2021-03-07] MEDS: buPROPion **XL** TABLET 150MG (WELLBUTRIN XL) PO SCH (08:30)
--- NOTE | 2021-03-07 08:34 | REPVR ---
PROCEDURE INFORMATION: Exam: US Abdomen, Limited; Right Upper Quadrant Exam date and time: 03/07/2021 6:51 AM Age: 30 years old Clinical indication: Condition or disease; Other: HX of hep c; Additional info: History of hep c TECHNIQUE: Imaging protocol: US abdomen. Real time ultrasound with image documentation. Limited exam focused on the right upper quadrant. COMPARISON: Abdomen, limited US 12/31/2014 5:18 PM FINDINGS: Liver: Fatty infiltration of the liver. Gallbladder: Technologist reported negative sonographic Pascal sign. Common bile duct: Mild echogenic bile in the gallbladder. No shadowing calculi, wall edema, or pericholecystic fluid. Normal caliber of the common bile duct measuring 5 mm in diameter. Pancreas: No focal mass or ductal dilatation in the visualized pancreas. Right kidney: Normal right renal morphology. No hydronephrosis. IMPRESSION: Fatty infiltration of the liver. Electronically signed by: Cedrick Johnson On 03/07/2021 08:34:53 AM
[2021-03-07] MEDS: BUPRENORPHINE/NALOXONE 2-0.5MG SUBLINGUAL TABLET(SUBOXONE) SL SCH (09:01)
--- NOTE | 2021-03-07 13:07 | MHIPN ---
[facility] PROGRESS NOTE DATE: 03/07/2021 The patient today states, "I'm a lot better." She says, "Now I know I have to quit drinking." She denies suicidal ideation, and she says her sleep was fair. MENTAL STATUS EXAMINATION: The patient is alert and oriented times three. Eye contact fair. Psychomotor activity is normal. There is no formal thought disorder noted. She says her mood is "a lot better." Affect is restricted but appropriate to mood. She is denying suicidal or homicidal ideation. Concentration is fair. Memory intact. Insight and judgment poor. DIAGNOSES: 1. Bipolar disorder, depressed. 2. Posttraumatic stress disorder. 3. Attention deficit hyperactivity disorder. 4. Posttraumatic stress disorder. 5. Borderline personality disorder. 6. Alcohol use disorder. 7. Polysubstance use disorder. TREATMENT PLAN: At this point, we will continue to monitor the patient for continued elevation and stabilization of her mood and continued resolution of suicidal ideation.
[2021-03-07 16:16] VITALS: BP 136/92
[2021-03-08 06:39] VITALS: BP 131/64
[2021-03-08] MEDS: busPIRone 10 MG TAB PO SCH ×2 (08:27→21:23)
[2021-03-08] MEDS: lamoTRIgine 100MG TAB PO SCH (08:27)
[2021-03-08] MEDS: BUPRENORPHINE/NALOXONE 2-0.5MG SUBLINGUAL TABLET(SUBOXONE) SL SCH (08:27)
[2021-03-08] MEDS: buPROPion **XL** TABLET 150MG (WELLBUTRIN XL) PO SCH (08:28)
[2021-03-08] MEDS: NICOTINE 21MG/24HR 1 EA TRANSDERMAL TD SCH (08:28)
[2021-03-08] MEDS: ADDERALL 5 MG TAB PO SCH ×2 (08:28→12:52)
[2021-03-08 15:31] VITALS: BP 152/95
[2021-03-09 06:37] VITALS: BP 126/73
[2021-03-09] MEDS: buPROPion **XL** TABLET 150MG (WELLBUTRIN XL) PO SCH (08:03)
[2021-03-09] MEDS: lamoTRIgine 100MG TAB PO SCH (08:03)
[2021-03-09] MEDS: busPIRone 10 MG TAB PO SCH (08:04)
[2021-03-09] MEDS: ADDERALL 5 MG TAB PO SCH (08:06)
[2021-03-09] MEDS: BUPRENORPHINE/NALOXONE 2-0.5MG SUBLINGUAL TABLET(SUBOXONE) SL SCH (08:10)
[2021-03-09] MEDS: NICOTINE 21MG/24HR 1 EA TRANSDERMAL TD SCH (08:11)
[2021-03-09] MEDS ORDERED: NICO21PAT TD (08:32)
[2021-03-09] MEDS ORDERED: ADDE30TA PO (08:32)
[2021-03-09 12:07] LABS: HEPATITIS C QUANTITATION 1910000 IU/mL (.)
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
--- NOTE | 2021-03-09 14:43 | MHIPN ---
[facility] PSYCHIATRIC PROGRESS NOTE DATE: 03/08/2021 HISTORY OF PRESENT ILLNESS: The patient states that she is feeling "less depressed." She says "I guess I am in acceptance," but says "it's still very overwhelming." She says she slept good and she is not suicidal. MENTAL STATUS EXAM: This patient is alert and oriented times 3. Eye contact is fair. Psychomotor activity is normal. There is no formal thought disorder noted. Mood is "better." affect appropriate. She is not psychotic, suicidal or homicidal. Concentration is fair. Memory intact. Insight and judgment is fair. DIAGNOSES: 1. Bipolar disorder depressed. 2. Post traumatic stress disorder. 3. Attention deficit hyperactivity disorder. 4. Borderline personality disorder. 5. Alcohol use disorder. 6. Poly-substance drug use. TREATMENT PLAN: At this point we will continue to monitor the patient for continued stabilization of her mood and resolution of suicidal ideation and to titrate her medications as indicated.
== END 2021-03-09 10:15 | disposition home or self-care (01) | DRG 753 ==
LOC: M ED 21:08 → UNDOADMIN 03-06 02:23 → M ED 03-06 02:23 → M PSY 03-06 02:23 → UNDODISIN 03-09 10:15
PROVIDERS: ADMIT Psychiatry & Neurology Psychiatry; ATTEND Psychiatry & Neurology Psychiatry
DX: F31.9 Bipolar disorder, unspecified (principal); R45.851 Suicidal ideations; F43.10 Post-traumatic stress disorder, unspecified; F10.10 Alcohol abuse, uncomplicated; F60.3 Borderline personality disorder; F90.9 Attention-deficit hyperactivity disorder, unspecified type; Z79.899 Other long term (current) drug therapy; Z88.0 Allergy status to penicillin; Z91.040 Latex allergy status; F12.90 Cannabis use, unspecified, uncomplicated; B18.2 Chronic viral hepatitis C

== ENCOUNTER → 2021-06-11 | Outpatient (REF) | payer OTHER ==
[~2021-06-11] MED LIST changes: +BUPR-365 PO; +NICO21PAT TD; +SUBO2MIS SL; +SUBO4MIS SL
[2021-06-11 20:36] LABS: HEMATOCRIT 40.1 % (36.0-47.0); HEMOGLOBIN 13.3 g/dl (12.0-15.5); MEAN CORPUSCULAR HEMOGLOBIN 33.8 pg (27.0-33.0); MEAN CORPUSCULAR HGB CONC 33.2 g/dl (32.0-36.5); MEAN CORPUSCULAR VOLUME 101.8 fl (80.0-96.0); PLATELET COUNT, AUTOMATED 235 10^3/uL (150-450); RED BLOOD COUNT 3.94 10^6/uL (4.00-5.40); WHITE BLOOD COUNT 5.8 10^3/uL (4.0-10.0)
[2021-06-11 21:15] LABS: ALT/SGPT 501 U/L (12-78); BILIRUBIN,TOTAL 0.2 MG/DL (0.2-1.0); BLOOD UREA NITROGEN 7 MG/DL (7-18); CALCIUM LEVEL 9.2 MG/DL (8.5-10.1); CARBON DIOXIDE LEVEL 27 MEQ/L (21-32); CHLORIDE LEVEL 105 MEQ/L (98-107); CREATININE FOR GFR 0.93 MG/DL (0.55-1.30); FREE T4 0.88 NG/DL (0.76-1.46); GLOMERULAR FILTRATION RATE > 60.0 (>60); GLUCOSE, FASTING 72 MG/DL (70-100); POTASSIUM SERUM 4.2 MEQ/L (3.5-5.1); SODIUM LEVEL 143 MEQ/L (136-145); THYROID STIMULATING HORMONE 0.645 uIU/ML (0.358-3.740); TOTAL PROTEIN 8.2 GM/DL (6.4-8.2)
== END ==
LOC: M SFHCADAM 14:52
PROVIDERS: ATTEND Family Medicine
DX: F90.9 Attention-deficit hyperactivity disorder, unspecified type (principal); F32.9 Major depressive disorder, single episode, unspecified; F10.10 Alcohol abuse, uncomplicated; B18.2 Chronic viral hepatitis C

== ENCOUNTER 2021-06-26 11:55 | Emergency (ER) | payer OTHER ==
[~2021-06-26] VITALS: Ht 160 cm; Wt 64.4 kg
[2021-06-26] MEDS ORDERED: AMPHET/DEXTR (12:09)
[2021-06-26 13:46] LABS: BASO # 0.1 10^3/uL (0.0-0.2); BASO % 0.3 % (0.0-1.0); HEMATOCRIT 45.7 % (36.0-47.0); HEMOGLOBIN 15.1 g/dl (12.0-15.5); LYMPH # 2.3 10^3/uL (1.5-5.0); LYMPH % 12.5 % (24.0-44.0); MEAN CORPUSCULAR HEMOGLOBIN 33.8 pg (27.0-33.0); MEAN CORPUSCULAR VOLUME 102.2 fl (80.0-96.0); MONO # 1.2 10^3/uL (0.0-0.8); MONO % 6.6 % (2.0-8.0); NEUTROPHILS # 14.3 10^3/uL (1.5-8.5); NEUTROPHILS % 79.5 % (36.0-66.0); PLATELET COUNT, AUTOMATED 369 10^3/uL (150-450); RED BLOOD COUNT 4.47 10^6/uL (4.00-5.40); WHITE BLOOD COUNT 18.1 10^3/uL (4.0-10.0)
[2021-06-26] MEDS ORDERED: CAPSAICIN 0.025% CR 60 GM TOP STA (13:59)
[2021-06-26] MEDS ORDERED: NS 1,000 ML IV ONE (14:00)
[2021-06-26] MEDS ORDERED: ONDANSETRON 4MG/2ML VIAL IV ONE (14:00)
[2021-06-26] MEDS ORDERED: diazePAM 10MG/2ML SYRINGE (J3360 PER 5MG) IV ONE (14:05)
[2021-06-26 14:10] LABS: ALBUMIN 4.7 GM/DL (3.2-5.2); ALT/SGPT 460 U/L (12-78); BILIRUBIN,DIRECT 0.1 MG/DL (0.0-0.2); BILIRUBIN,TOTAL 0.3 MG/DL (0.2-1.0); LIPASE 48 U/L (73-393); TOTAL PROTEIN 9.6 GM/DL (6.4-8.2)
[2021-06-26] MEDS ORDERED: ISOVUE-370 76% 100ML VIAL As Ordered ONE (14:11)
--- NOTE | 2021-06-26 15:06 | REP ---
INDICATION: NV, severe RUQ abd pain, +ETOH. COMPARISON: Comparison CT study abdomen and pelvis March 26, 2018. TECHNIQUE: Helical scanning was acquired and 4 mm axial images are re-formatted. Coronal and sagittal MPR images were generated and reviewed. The contrast enhancement dose is 100 mL of intravenous Isovue 370. FINDINGS: Preliminary digital woods rider radiograph demonstrates evidence of hepatic enlargement. Normal bowel gas pattern. The lung bases are clear on axial CT images today. The liver shows diffuse moderate to marked fatty infiltration. The vertical span of the liver in the midclavicular line is 20.7 cm mild to moderate hepatomegaly. The spleen is not enlarged and is homogeneous in texture. No significant splenic abnormality. No adrenal lesion is seen. The pancreas is unremarkable. No abnormality is noted in the gallbladder. No retroperitoneal mass or adenopathy is seen. The kidneys enhance symmetrically. There is no evidence of hydronephrosis. There is however an intrarenal calculus in the upper pole of the left kidney measuring 8 mm in greatest diameter. This was present previously. Urinary bladder is unremarkable. No uterine or ovarian abnormality is seen. In the gastrointestinal tract, there is moderate mucosal and mural thickening affecting the entire colon consistent with enterocolitis. No obstructive lesion is seen. Small bowel loops are unremarkable. The appendix appears normal in the right lower quadrant. No abdominal wall defect or bony destructive lesion is seen. IMPRESSION: 1. Moderate hepatomegaly with moderate to marked diffuse fatty infiltration of the liver. 2. Mural thickening throughout the colon consistent with enterocolitis. No obstructive lesion seen. 3. Intrarenal nephrolithiasis upper pole left kidney without hydronephrosis. 4. Normal appendix. <Electronically signed by Sean Hooker > 06/26/21 [id number]
[2021-06-26 15:46] LABS: ACETAMINOPHEN LEVEL < 2.0 UG/ML (10.0-30.0); ACETONE/KETONE > 46.00 MG/DL (<2.81); ETHYL ALCOHOL (ETHANOL) 0.079 % (0.000-0.010); HEPATITIS A ANTIBODY IGM NEGATIVE (NEGATIVE); HEPATITIS B CORE ANTIBODY IGM NEGATIVE (NEGATIVE); HEPATITIS B SURFACE ANTIGEN NEGATIVE (NEGATIVE); SALICYLATE LEVEL 2.3 MG/DL (5.0-30.0)
[2021-06-26 15:54] LABS: HEPATITIS C VIRUS ABY INDEX > 11.0 INDEX (<0.8)
[2021-06-26] MEDS ORDERED: GI COCKTAIL 50ML BTL(HYOSCYAMINE/MAALOX/LIDOCAINE VISCOUS)(1:3:1) PO ONE (16:05)
[2021-06-26] MEDS ORDERED: PANTOPRAZOLE 40MG VIAL (C9113 PER 1) IV ONE (16:05)
[2021-06-26] MEDS ORDERED: CAPS0.022 TOP (16:06)
[2021-06-26] MEDS ORDERED: ONDA4TAB6 PO (16:06)
[2021-06-26 16:37] VITALS: BP 140/90
--- NOTE | 2021-06-29 09:54 | ED PDOC ---
Post-Departure Follow-Up ct abd/p faxed to [facility] for fu Steve Murphy MD Jun 29, 2021 09:54
== END 2021-06-26 16:46 | disposition home or self-care (01) ==
LOC: M ED 11:55
DX: F10.188 Alcohol abuse with other alcohol-induced disorder (principal); R10.9 Unspecified abdominal pain; R11.2 Nausea with vomiting, unspecified; R16.2 Hepatomegaly with splenomegaly, not elsewhere classified; F17.200 Nicotine dependence, unspecified, uncomplicated; Z79.899 Other long term (current) drug therapy; Z88.0 Allergy status to penicillin; Z91.040 Latex allergy status; Z86.69 Personal history of other diseases of the nervous system and sense organs
CPT/HCPCS: 74177; 80047; 80076; 80143; 82010; 82077; 83690; 84702; 85025; 86705; 86709; 86803; 87340; 87521; 96374; 96375; 99284; C9113; J2405; J3360; Q9967

== ENCOUNTER 2021-09-05 15:08 | Observation (INO) | payer OTHER ==
[~2021-09-05] VITALS: Ht 160 cm; Wt 66.0 kg
[~2021-09-05 15:08] MED LIST changes: +AMPHET/DEXTR; +CAPS0.022 TOP; +ONDA4TAB6 PO
[2021-09-05 15:43] LABS: BASO # 0.1 10^3/uL (0.0-0.2); BASO % 0.9 % (0.0-1.0); EOS % 0.8 % (0.0-3.0); HEMATOCRIT 37.4 % (36.0-47.0); HEMOGLOBIN 12.7 g/dl (12.0-15.5); LYMPH # 1.5 10^3/uL (1.5-5.0); LYMPH % 28.2 % (24.0-44.0); MEAN CORPUSCULAR HEMOGLOBIN 33.6 pg (27.0-33.0); MEAN CORPUSCULAR VOLUME 98.9 fl (80.0-96.0); MONO # 0.4 10^3/uL (0.0-0.8); MONO % 7.6 % (2.0-8.0); NEUTROPHILS # 3.3 10^3/uL (1.5-8.5); NEUTROPHILS % 62.1 % (36.0-66.0); PLATELET COUNT, AUTOMATED 307 10^3/uL (150-450); RED BLOOD COUNT 3.78 10^6/uL (4.00-5.40); WHITE BLOOD COUNT 5.3 10^3/uL (4.0-10.0)
[2021-09-05 16:13] LABS: HCG, SERUM QUALITATIVE NEGATIVE (NEGATIVE)
[2021-09-05 16:17] LABS: ACETAMINOPHEN LEVEL < 2.0 UG/ML (10.0-30.0); ALBUMIN 3.5 GM/DL (3.2-5.2); ALT/SGPT 356 U/L (12-78); BILIRUBIN,DIRECT < 0.1 MG/DL (0.0-0.2); BILIRUBIN,TOTAL 0.1 MG/DL (0.2-1.0); BLOOD UREA NITROGEN 7 MG/DL (7-18); CALCIUM LEVEL 8.8 MG/DL (8.5-10.1); CARBON DIOXIDE LEVEL 25 MEQ/L (21-32); CHLORIDE LEVEL 109 MEQ/L (98-107); CREATININE FOR GFR 1.66 MG/DL (0.55-1.30); ETHYL ALCOHOL (ETHANOL) 0.062 % (0.000-0.010); GLOMERULAR FILTRATION RATE 38.4 (>60); GLUCOSE, FASTING 145 MG/DL (70-100); POTASSIUM SERUM 3.5 MEQ/L (3.5-5.1); SALICYLATE LEVEL < 1.7 MG/DL (5.0-30.0); SODIUM LEVEL 142 MEQ/L (136-145); THYROID STIMULATING HORMONE 0.463 uIU/ML (0.358-3.740); TOTAL PROTEIN 7.1 GM/DL (6.4-8.2)
[2021-09-05] MEDS ORDERED: ISOVUE-370 76% 100ML VIAL As Ordered ONE (16:19)
[2021-09-05] MEDS ORDERED: NS 1,000 ML IV ONE ×2 (16:30→17:55)
--- NOTE | 2021-09-05 17:02 | REP ---
INDICATION: Trauma. COMPARISON: CT cervical spine, 06/15/2013. TECHNIQUE: Contiguous 2 mm thick axial projection images were obtained of the cervical spine. 2D sagittal and coronal reconstructions were performed. FINDINGS: There is minimal arthritis of the atlantodental joint. There is no evidence of cervical spine fracture. There is no evidence of facet joint subluxation or dislocation. The intervertebral disc spaces are preserved. The facet joints appear normal. The skull base is unremarkable. The visualized mandible is normal. There is nasal septal deviation to the right, with a spur extending to the medial wall of the right maxillary sinus. There are no acute soft tissue abnormalities. The perivertebral soft tissues of the cervical spine have a normal unenhanced appearance. The visualized lung apices are unremarkable. IMPRESSION: 1. No evidence of acute injury to the cervical spine. 2. There is minimal arthritis of the atlantodental joint. 3. There is no evidence of cervical degenerative disc disease or facet arthropathy. 4. Other findings as noted. <Electronically signed by Andrade Guerra > 09/05/21 [id number]
--- NOTE | 2021-09-05 17:04 | REP ---
INDICATION: Trauma. COMPARISON: None. TECHNIQUE: Contiguous 5 mm thick axial projection images were obtained through the head. 2D coronal reconstructions were performed. FINDINGS: There is a minimal right frontal scalp contusion. There is no evidence of acute intracranial hemorrhage or infarction. There are no abnormal intracranial masses or mass effects. The skull base and calvarium are normal. The visualized mastoid air cells and paranasal sinuses are clear. The intraorbital contents and visualized extracranial soft tissues are unremarkable. IMPRESSION: 1. No evidence of intracranial pathology. 2. Small right frontal scalp contusion. <Electronically signed by Andrade Guerra > 09/05/21 [id number]
--- NOTE | 2021-09-05 17:18 | REP ---
INDICATION: Trauma. COMPARISON: None. TECHNIQUE: Imaging protocol: Computed tomography of the chest with IV contrast. Contiguous 3 mm thick axial projection images were obtained through the chest. 2D sagittal and coronal reconstructions were performed. Radiation optimization: All CT scans at this facility use at least one of these dose optimization techniques: automated exposure control; mA and/or kV adjustment per patient size (includes targeted exams where dose is matched to clinical indication); or iterative reconstruction. CONTRAST: 75 cc Isovue 370 intravenous FINDINGS: Lower neck: The thyroid gland is normal. There is no supraclavicular lymphadenopathy. Mediastinum: There is residual normal thymic tissue in anterior mediastinum. There are no abnormal masses or lymphadenopathy. Heart/thoracic aorta/pulmonary arterial tree: The heart size is normal. There is no pericardial effusion. The thoracic aorta is normal. There is no thoracic aortic aneurysm or aortic dissection. The pulmonary arteries are suboptimally opacified but no filling defects are identified. Upper abdomen: There is a 6 mm stone in an upper pole calyx of the left kidney. Thoracic esophagus: Normal. Chest wall and axilla: The breasts and soft tissues of the chest wall are unremarkable. There is no axillary lymphadenopathy. There are no significant bony abnormalities of the chest. Lung parenchyma: The lungs are clear. There are no pulmonary nodules or masses. There is no significant interstitial or alveolar lung disease. There are no pleural effusions. IMPRESSION: 1. No evidence of acute cardiopulmonary pathology. 2. Left nephrolithiasis. <Electronically signed by Andrade Guerra > 09/05/21 [id number]
--- NOTE | 2021-09-05 17:35 | REP ---
INDICATION: Trauma. COMPARISON: CT abdomen pelvis with IV contrast, 03/26/2018. TECHNIQUE: Imaging protocol: Computed tomography of the abdomen and pelvis with IV contrast. Contiguous 3 mm thick axial projection images were obtained through the abdomen and pelvis. 2D sagittal and coronal reconstructions were performed. Radiation optimization: All CT scans at this facility use at least one of these dose optimization techniques: automated exposure control; mA and/or kV adjustment per patient size (includes targeted exams where dose is matched to clinical indication); or iterative reconstruction. Contrast material: ISOVUE 370; Contrast volume: 100 ml; Contrast route: INTRAVENOUS (IV). FINDINGS: Liver: Normal. Gallbladder: Normal. Spleen: Normal. Pancreas: Normal. Adrenal glands: Fall. Kidneys/bladder: There is a 6 mm stone in an upper pole calyx of the left kidney. There is no ureterolithiasis or hydronephrosis. The right kidney is unremarkable. The urinary bladder has a normal unenhanced appearance. Pelvic structures: There is an IUD in good position in the uterine cavity. The ovaries are normal. There is no free fluid the pelvis. There is no pelvic or inguinal lymphadenopathy. GI tract: There is a focus of inflammation of the pericolonic fat at the rectosigmoid junction (axial image 131). There is no associated pathology. There is thickening of the submucosal fat of portions of the colon. This is a nonspecific finding but is associated with inflammatory bowel disease. There is a normal appendix demonstrated. The gastrointestinal tract is otherwise unremarkable. Abdominal wall and mesentery: There are no abdominal wall defects. There is no mesenteric or retroperitoneal lymphadenopathy. Abdominal aorta and vascular structures: The abdominal aorta, inferior vena cava, and portal venous system are normal. Bony structures: There is a benign hemangioma in the L1 vertebral body. The lumbosacral spine and pelvis are otherwise unremarkable. The SI joints are normal. IMPRESSION: 1. Left nephrolithiasis without obstruction. 2. IUD in good position in the uterine cavity. 3. Focus of inflammation of the pericolonic fat at the rectosigmoid junction of questionable significance. 4. There is no evidence of intra-abdominal organ injury or hemoperitoneum. 5. Thickening of the submucosal fat of portions of the colon. This is a nonspecific finding but is associated with inflammatory bowel disease. 6. Other findings as noted. <Electronically signed by Andrade Guerra > 09/05/21 [id number]
[2021-09-05 17:40] LABS: AMPHETAMINES LEVEL URINE NEGATIVE (NEGATIVE); BARBITURATES URINE NEGATIVE (NEGATIVE); BENZODIAZEPINES URINE NEGATIVE (NEGATIVE); CANNABINOIDS URINE POSITIVE (NEGATIVE); COCAINE METABOLITE URINE NEGATIVE (NEGATIVE); METHADONE URINE NEGATIVE (NEGATIVE); OPIATES URINE NEGATIVE (NEGATIVE); PHENCYCLIDINE URINE NEGATIVE (NEGATIVE)
[2021-09-05 22:45] LABS: CREATININE FOR GFR 1.53 MG/DL (0.55-1.30); GLOMERULAR FILTRATION RATE 42.1 (>60)
[2021-09-05] MEDS ORDERED: ACETAMINOPHEN TAB 650MG DOSE (2X325MG) PO ONE (22:50)
[2021-09-05] MEDS ORDERED: ACETAMINOPHEN TAB 650MG DOSE (2X325MG) PO PRN (22:55)
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
[2021-09-05] MEDS ORDERED: ADDE30TA PO (23:08)
[2021-09-05] MEDS ORDERED: HOME MED LIST COMPLETE! XX SCH (23:15)
[2021-09-05] MEDS ORDERED: NICOTINE 21MG/24HR 1 EA TRANSDERMAL TD ONE (23:25)
[2021-09-06] VITALS (8 sets, daily range): BP systolic 120–130; BP diastolic 81–84
[2021-09-06 00:13] LABS: RSV AMPLIFICATION NEGATIVE (NEGATIVE)
[2021-09-06] MEDS: THIAMINE 100 MG TAB PO SCH ×3 (00:19→20:43)
[2021-09-06] MEDS: LORazepam 2 MG TAB PO PRN ×5 (00:19→22:20)
[2021-09-06 00:32] LABS: MYOGLOBIN SCREEN, URINE POSITIVE (NEGATIVE)
[2021-09-06 00:38] LABS: APPEARANCE, URINE CLOUDY (CLEAR); BACTERIA, URINE AUTO NEGATIVE (NEGATIVE); BILIRUBIN, URINE AUTO NEGATIVE (NEGATIVE); BLOOD, URINE BLOOD 3+ (NEGATIVE); COLOR, URINE YELLOW (YELLOW); GLUCOSE, URINE (UA) AUTO NEGATIVE (NEGATIVE); KETONE, URINE AUTO 1+ mg/dL (NEGATIVE); LEUKOCYTE ESTERASE, URINE AUTO 2+ (NEGATIVE); NITRITE, URINE AUTO NEGATIVE (NEGATIVE); PROTEIN, URINE AUTO NEGATIVE (NEGATIVE); RBC, URINE AUTO 19 /HPF (0-3); SPECIFIC GRAVITY URINE AUTO 1.015 (1.002-1.035); SQUAMOUS EPITHELIAL CELL UR AU 26 /HPF (0-6); UROBILINOGEN, URINE AUTO 0.2 mg/dL (0.0-2.0); WBC, URINE AUTO 22 /HPF (0-3)
[2021-09-06 00:43] LABS: CREATININE,RANDOM URINE 40.3 MG/DL; SODIUM,RANDOM URINE 210 MEQ/L
[2021-09-06] MEDS: LR 1,000 ML IV SCH ×3 (01:15→18:07)
[2021-09-06 08:43] LABS: HEMATOCRIT 37.6 % (36.0-47.0); HEMOGLOBIN 12.6 g/dl (12.0-15.5); MEAN CORPUSCULAR HEMOGLOBIN 33.2 pg (27.0-33.0); MEAN CORPUSCULAR HGB CONC 33.5 g/dl (32.0-36.5); MEAN CORPUSCULAR VOLUME 99.2 fl (80.0-96.0); PLATELET COUNT, AUTOMATED 289 10^3/uL (150-450); RED BLOOD COUNT 3.79 10^6/uL (4.00-5.40); WHITE BLOOD COUNT 5.6 10^3/uL (4.0-10.0)
[2021-09-06] MEDS: MULTIVITAMINS/MINERALS THERAP 1 TAB PO SCH (08:45)
[2021-09-06] MEDS: busPIRone 10 MG TAB PO SCH ×2 (08:45→20:43)
[2021-09-06] MEDS: FOLIC ACID 1 MG TAB PO SCH (08:45)
[2021-09-06] MEDS: lamoTRIgine 100MG TAB PO SCH (08:45)
[2021-09-06] MEDS: NICOTINE 21MG/24HR 1 EA TRANSDERMAL TD SCH (08:45)
[2021-09-06] MEDS: ENOXAPARIN 40MG/0.4ML SYRINGE (J1650 PER 10MG) SC SCH (08:47)
[2021-09-06] MEDS ORDERED: INFLUENZA QUADRIVALENT PF VACCINE 0.5ML SYRINGE IM ONE (09:00)
[2021-09-06 09:02] LABS: ALBUMIN 3.4 GM/DL (3.2-5.2); BILIRUBIN,TOTAL 0.2 MG/DL (0.2-1.0); CALCIUM LEVEL 8.9 MG/DL (8.5-10.1); CREATININE FOR GFR 1.61 MG/DL (0.55-1.30); GLOMERULAR FILTRATION RATE 39.7 (>60); TOTAL PROTEIN 6.9 GM/DL (6.4-8.2)
[2021-09-06] MEDS: CYCLOBENZAPRINE 5MG TABLET PO PRN (11:43)
--- NOTE | 2021-09-06 12:08 | IPNPDOC ---
Text Note Date of Service The patient was seen on 09/06/21. NOTE Subjective: Patient stated that she feels better, she denied any suicidal id eation in the morning. No fever or chills Objective: GENERAL APPEARANCE: NAD HEENT: no scleral icterus, no JVD, EOMI, Scalp hematoma CARDIOVASCULAR: S1S2 LUNGS: Diminished lung sounds bilaterally ABDOMEN: soft & not tender w palpation MUSCULOSKELETAL: no cyanosis, no swelling INTEGUMENT: no generalized pallor NEUROLOGICAL: cranial nerve function from 2-12 intact, follows commands, speech not dysarthric Assessment and plan: Patient is 31 years old female with past medical history of polysubstance abuse, EtOH abuse, bipolar disorder, ADHD presented to hospital after suicidal attempt. Suicidal attempt Appreciate/agree with psychiatrist consult Alcohol abuse CIWA Scalp hematoma Pain management Hx of polysubstance abuse Prior hx of heroin OD requiring CPR and Narcan in 2018, hx of asp PNA as a result Bipolar disorder Continue home lamotrigine, buspar ADHD Hold home medication DVT prophylaxis: lovenox VS,Fishbone, I+O VS, Fishbone, I+O Laboratory Tests 09/05/21 15:28 09/05/21 22:08 09/06/21 08:15 Vital Signs Date Time Temp Pulse Resp B/P (MAP) Pulse Ox O2 Delivery O2 Flow Rate FiO2 09/06/21 10:00 105 130/83 09/06/21 06:00 98.4 20 98 Room Air I&O- Last 24 Hours up to 6 AM 09/06/21 06:00 Intake Total 1240 ml Output Total 0 ml Balance 1240 ml MARIE BECKER DO Sep 06, 2021 12:08
[2021-09-06] MEDS: traMADol 50 MG TAB PO PRN (14:37)
[2021-09-06] MEDS ORDERED: traZODone 50 MG TAB PO ONE (22:35)
[2021-09-07] MEDS: LR 1,000 ML IV SCH ×3 (00:11→14:31)
[2021-09-07 06:00] VITALS: BP 120/86
[2021-09-07 06:09] VITALS: BP 120/86
[2021-09-07] MEDS: LORazepam 2 MG TAB PO PRN (06:14)
[2021-09-07 06:23] LABS: HEMATOCRIT 36.4 % (36.0-47.0); HEMOGLOBIN 12.1 g/dl (12.0-15.5); MEAN CORPUSCULAR HEMOGLOBIN 33.2 pg (27.0-33.0); MEAN CORPUSCULAR HGB CONC 33.2 g/dl (32.0-36.5); MEAN CORPUSCULAR VOLUME 99.7 fl (80.0-96.0); PLATELET COUNT, AUTOMATED 205 10^3/uL (150-450); RED BLOOD COUNT 3.65 10^6/uL (4.00-5.40); WHITE BLOOD COUNT 3.4 10^3/uL (4.0-10.0)
[2021-09-07 06:59] LABS: BILIRUBIN,TOTAL 0.4 MG/DL (0.2-1.0); CALCIUM LEVEL 8.9 MG/DL (8.5-10.1); CREATININE FOR GFR 1.17 MG/DL (0.55-1.30); GLOMERULAR FILTRATION RATE 57.4 (>60); POTASSIUM SERUM 4.1 MEQ/L (3.5-5.1); TOTAL PROTEIN 6.4 GM/DL (6.4-8.2)
[2021-09-07] MEDS ORDERED: BUPR1SUB4 SL (08:23)
[2021-09-07] MEDS ORDERED: HOME MED LIST COMPLETE! XX SCH (08:25)
[2021-09-07] MEDS: lamoTRIgine 100MG TAB PO SCH (08:37)
[2021-09-07] MEDS: NICOTINE 21MG/24HR 1 EA TRANSDERMAL TD SCH (08:37)
[2021-09-07] MEDS: busPIRone 10 MG TAB PO SCH (08:37)
[2021-09-07] MEDS: THIAMINE 100 MG TAB PO SCH (08:38)
[2021-09-07] MEDS: MULTIVITAMINS/MINERALS THERAP 1 TAB PO SCH (08:38)
[2021-09-07] MEDS: traMADol 50 MG TAB PO PRN (08:38)
[2021-09-07] MEDS: FOLIC ACID 1 MG TAB PO SCH (08:38)
[2021-09-07] MEDS: CYCLOBENZAPRINE 5MG TABLET PO PRN (08:38)
[2021-09-07] MEDS: ENOXAPARIN 40MG/0.4ML SYRINGE (J1650 PER 10MG) SC SCH (08:39)
[2021-09-07] MEDS ORDERED: BUPRENORPHINE/NALOXONE 2-0.5MG SUBLINGUAL TABLET(SUBOXONE) SL SCH (09:00)
[2021-09-07 14:00] VITALS: BP 116/80
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
[2021-09-08 14:09] LABS: HEPATITIS C QUANTITATION 8090000 IU/mL (.)
== END 2021-09-07 17:00 | disposition home or self-care (01) ==
LOC: EDBD 15:08 → M ED 15:08 → M ED INP 22:52 → M MS5PR 09-06 01:00
PROVIDERS: ADMIT Family Medicine; ATTEND Family Medicine
DX: S00.03XA Contusion of scalp, initial encounter (principal); V87.8XXA Person injured in other specified noncollision transport accidents involving motor vehicle (traffic), initial encounter; Y92.410 Unspecified street and highway as the place of occurrence of the external cause; T14.91XA Suicide attempt, initial encounter; F10.10 Alcohol abuse, uncomplicated; F31.9 Bipolar disorder, unspecified; F90.9 Attention-deficit hyperactivity disorder, unspecified type; F19.11 Other psychoactive substance abuse, in remission; N17.9 Acute kidney failure, unspecified; R74.01 Elevation of levels of liver transaminase levels; F60.3 Borderline personality disorder; B19.20 Unspecified viral hepatitis C without hepatic coma; F43.10 Post-traumatic stress disorder, unspecified; Z79.899 Other long term (current) drug therapy; Z88.0 Allergy status to penicillin; Z91.040 Latex allergy status; F17.210 Nicotine dependence, cigarettes, uncomplicated
CPT/HCPCS: 36415; 70450; 71260; 72125; 74177; 80048; 80053; 80076; 80143; 80307; 81001; 81002; 82077; 82550; 82565; 82570; 84300; 84443; 84703; 85025; 85027; 87522; 87631; 90686; 93041; 94760; 96360; 96372; 99285; Q9967

== ENCOUNTER 2022-01-23 13:16 | Emergency (ER) | payer OTHER ==
[~2022-01-23] VITALS: Ht 160 cm; Wt 66.5 kg
[~2022-01-23 13:16] MED LIST changes: +BUPR1SUB4 SL
[2022-01-23] MEDS ORDERED: BUPR150T12 PO (13:24)
[2022-01-23 13:58] LABS: HEMATOCRIT 41.4 % (36.0-47.0); HEMOGLOBIN 14.6 g/dl (12.0-15.5); MEAN CORPUSCULAR HGB CONC 35.3 g/dl (32.0-36.5); MEAN CORPUSCULAR VOLUME 96.3 fl (80.0-96.0); PLATELET COUNT, AUTOMATED 375 10^3/uL (150-450); WHITE BLOOD COUNT 9.3 10^3/uL (4.0-10.0)
[2022-01-23 14:30] LABS: HCG, SERUM QUALITATIVE NEGATIVE (NEGATIVE)
[2022-01-23 14:53] LABS: ACETAMINOPHEN LEVEL < 2.0 UG/ML (10.0-30.0); ALT/SGPT 70 U/L (12-78); BILIRUBIN,DIRECT < 0.1 MG/DL (0.0-0.2); BILIRUBIN,TOTAL 0.1 MG/DL (0.2-1.0); BLOOD UREA NITROGEN 11 MG/DL (7-18); CALCIUM LEVEL 9.1 MG/DL (8.5-10.1); CARBON DIOXIDE LEVEL 25 MEQ/L (21-32); CHLORIDE LEVEL 107 MEQ/L (98-107); CREATININE FOR GFR 0.73 MG/DL (0.55-1.30); ETHYL ALCOHOL (ETHANOL) 0.426 % (0.000-0.010); GLOMERULAR FILTRATION RATE > 60.0 (>60); GLUCOSE, FASTING 91 MG/DL (70-100); POTASSIUM SERUM 3.9 MEQ/L (3.5-5.1); SALICYLATE LEVEL < 1.7 MG/DL (5.0-30.0); SODIUM LEVEL 143 MEQ/L (136-145); THYROID STIMULATING HORMONE 0.292 uIU/ML (0.358-3.740); TOTAL PROTEIN 8.1 GM/DL (6.4-8.2)
[2022-01-23 14:54] LABS: AMPHETAMINES LEVEL URINE NEGATIVE (NEGATIVE); BARBITURATES URINE NEGATIVE (NEGATIVE); BENZODIAZEPINES URINE NEGATIVE (NEGATIVE); CANNABINOIDS URINE POSITIVE (NEGATIVE); COCAINE METABOLITE URINE NEGATIVE (NEGATIVE); METHADONE URINE NEGATIVE (NEGATIVE); OPIATES URINE NEGATIVE (NEGATIVE); PHENCYCLIDINE URINE NEGATIVE (NEGATIVE)
[2022-01-23 16:02] LABS: RSV AMPLIFICATION NEGATIVE (NEGATIVE)
[2022-01-23] MEDS ORDERED: NICOTINE 21MG/24HR 1 EA TRANSDERMAL TD ONE (17:35)
[2022-01-23] MEDS ORDERED: GABA-282 PO (17:40)
[2022-01-23] MEDS ORDERED: LAMO100T80 PO (17:40)
[2022-01-23] MEDS ORDERED: COLL1CAP PO (17:41)
[2022-01-23] MEDS ORDERED: SOFO1TAB PO (17:41)
[2022-01-23] MEDS ORDERED: HOME MED LIST COMPLETE! XX SCH (17:45)
[2022-01-23] MEDS: LORazepam 2 MG TAB PO PRN ×2 (20:10→21:08)
[2022-01-23] MEDS: THIAMINE 100 MG TAB PO SCH (21:00)
[2022-01-24] MEDS: LORazepam 2 MG TAB PO PRN ×2 (00:45→09:18)
[2022-01-24] MEDS ORDERED: MULTIVITAMINS/MINERALS THERAP 1 TAB PO SCH (09:00)
[2022-01-24] MEDS ORDERED: FOLIC ACID 1 MG TAB PO SCH (09:00)
[2022-01-24] MEDS: THIAMINE 100 MG TAB PO SCH (09:15)
[2022-01-24] MEDS ORDERED: lamoTRIgine 100MG TAB PO SCH (09:30)
[2022-01-24] MEDS ORDERED: buPROPion **XL** TABLET 150MG (WELLBUTRIN XL) PO SCH (09:30)
[2022-01-24] MEDS ORDERED: ADDERALL 5 MG TAB PO SCH (09:30)
[2022-01-24] MEDS ORDERED: GABAPENTIN 300 MG CAP PO SCH (09:30)
[2022-01-24] MEDS: ADDERALL 5 MG TAB PO SCH ×2 (09:41→13:39)
[2022-01-24 13:43] VITALS: BP 134/92
== END 2022-01-24 13:45 | disposition home or self-care (01) ==
LOC: M ED 14:16
DX: F10.120 Alcohol abuse with intoxication, uncomplicated (principal); F32.A Depression, unspecified; K21.9 Gastro-esophageal reflux disease without esophagitis; B19.20 Unspecified viral hepatitis C without hepatic coma; F17.200 Nicotine dependence, unspecified, uncomplicated; Z88.0 Allergy status to penicillin; Z91.040 Latex allergy status; Z79.899 Other long term (current) drug therapy

== ENCOUNTER → 2022-04-15 | Outpatient (CLI) | payer OTHER ==
[~2022-04-15] MED LIST changes: +COLL1CAP PO; +LAMO100T80 PO; +SOFO1TAB PO
== END ==
LOC: M OUTALCOH 09:31
PROVIDERS: ATTEND Psychiatry & Neurology Psychiatry
DX: Z13.39 Encounter for screening examination for other mental health and behavioral disorders (principal)

== ENCOUNTER 2022-04-22 08:34 | Outpatient (RCR) | payer OTHER | END 2022-04-25 | LOC: M OUTALCOH 08:34 | PROVIDERS: ATTEND Psychiatry & Neurology Psychiatry | DX: F10.20 Alcohol dependence, uncomplicated (principal); F16.10 Hallucinogen abuse, uncomplicated; F12.10 Cannabis abuse, uncomplicated; F17.200 Nicotine dependence, unspecified, uncomplicated ==

== ENCOUNTER → 2022-04-29 | Outpatient (REF) | payer OTHER ==
[2022-04-29 14:03] LABS: HEMATOCRIT 36.2 % (36.0-47.0); HEMOGLOBIN 11.6 g/dl (12.0-15.5); MEAN CORPUSCULAR HEMOGLOBIN 33.2 pg (27.0-33.0); MEAN CORPUSCULAR VOLUME 103.7 fl (80.0-96.0); PLATELET COUNT, AUTOMATED 283 10^3/uL (150-450); RED BLOOD COUNT 3.49 10^6/uL (4.00-5.40); WHITE BLOOD COUNT 6.4 10^3/uL (4.0-10.0)
[2022-04-29 15:29] LABS: ALBUMIN 3.6 GM/DL (3.2-5.2); ALT/SGPT 98 U/L (12-78); BILIRUBIN,TOTAL 0.2 MG/DL (0.2-1.0); BLOOD UREA NITROGEN 17 MG/DL (7-18); CALCIUM LEVEL 9.3 MG/DL (8.5-10.1); CARBON DIOXIDE LEVEL 24 MEQ/L (21-32); CHLORIDE LEVEL 107 MEQ/L (98-107); CREATININE FOR GFR 0.76 MG/DL (0.55-1.30); FREE T4 0.72 NG/DL (0.76-1.46); GLOMERULAR FILTRATION RATE > 60.0 (>60); GLUCOSE, FASTING 88 MG/DL (70-100); POTASSIUM SERUM 4.2 MEQ/L (3.5-5.1); SODIUM LEVEL 137 MEQ/L (136-145); TOTAL PROTEIN 6.9 GM/DL (6.4-8.2)
[2022-04-30 01:18] LABS: HEMOGLOBIN A1c 4.7 %
== END ==
LOC: M SFHCADAM 08:43
PROVIDERS: ATTEND Family Medicine
DX: F90.9 Attention-deficit hyperactivity disorder, unspecified type (principal); F10.20 Alcohol dependence, uncomplicated; F32.9 Major depressive disorder, single episode, unspecified; Z91.89 Other specified personal risk factors, not elsewhere classified

== ENCOUNTER → 2022-05-26 | Outpatient (RCR) | payer OTHER | LOC: M OUTALCOH 04-26 08:40 | PROVIDERS: ATTEND Psychiatry & Neurology Psychiatry | DX: F10.20 Alcohol dependence, uncomplicated (principal); F16.10 Hallucinogen abuse, uncomplicated; F12.10 Cannabis abuse, uncomplicated; F17.200 Nicotine dependence, unspecified, uncomplicated ==

== ENCOUNTER 2022-06-24 13:23 | Outpatient (RCR) | payer OTHER | END 2022-06-25 | LOC: M OUTALCOH 13:23 | PROVIDERS: ATTEND Psychiatry & Neurology Psychiatry | DX: F10.20 Alcohol dependence, uncomplicated (principal); F16.10 Hallucinogen abuse, uncomplicated; F12.10 Cannabis abuse, uncomplicated; F17.200 Nicotine dependence, unspecified, uncomplicated ==

== ENCOUNTER → 2022-07-26 | Outpatient (RCR) | payer OTHER | LOC: M OUTALCOH 06-28 14:40 | PROVIDERS: ATTEND Psychiatry & Neurology Psychiatry | DX: F10.20 Alcohol dependence, uncomplicated (principal); F16.10 Hallucinogen abuse, uncomplicated; F12.10 Cannabis abuse, uncomplicated; F17.200 Nicotine dependence, unspecified, uncomplicated ==

== ENCOUNTER 2022-08-23 14:00 | Outpatient (RCR) | payer OTHER | END 2022-08-25 | LOC: M OUTALCOH 14:00 | PROVIDERS: ATTEND Psychiatry & Neurology Psychiatry | DX: F10.20 Alcohol dependence, uncomplicated (principal); F16.10 Hallucinogen abuse, uncomplicated; F12.10 Cannabis abuse, uncomplicated; F17.200 Nicotine dependence, unspecified, uncomplicated ==

== ENCOUNTER 2022-09-24 11:00 | Outpatient (RCR) | payer OTHER | END 2022-09-25 | LOC: M OUTALCOH 11:00 | PROVIDERS: ATTEND Psychiatry & Neurology Psychiatry | DX: F10.20 Alcohol dependence, uncomplicated (principal); F16.10 Hallucinogen abuse, uncomplicated; F12.10 Cannabis abuse, uncomplicated; F17.200 Nicotine dependence, unspecified, uncomplicated ==

== ENCOUNTER 2022-10-20 13:00 | Outpatient (RCR) | payer OTHER | END 2022-10-26 | LOC: M OUTALCOH 13:00 | PROVIDERS: ATTEND Psychiatry & Neurology Psychiatry | DX: F10.20 Alcohol dependence, uncomplicated (principal); F16.10 Hallucinogen abuse, uncomplicated; F12.10 Cannabis abuse, uncomplicated; F17.200 Nicotine dependence, unspecified, uncomplicated ==

== ENCOUNTER 2022-11-18 12:55 | Outpatient (RCR) | payer OTHER | END 2022-11-23 | LOC: M OUTALCOH 12:55 | PROVIDERS: ATTEND Psychiatry & Neurology Psychiatry | DX: F10.20 Alcohol dependence, uncomplicated (principal); F16.10 Hallucinogen abuse, uncomplicated; F12.10 Cannabis abuse, uncomplicated; F17.200 Nicotine dependence, unspecified, uncomplicated ==

== ENCOUNTER → 2022-12-24 | Outpatient (RCR) | payer OTHER | LOC: M OUTALCOH 11-24 16:00 | PROVIDERS: ATTEND Psychiatry & Neurology Psychiatry | DX: F10.20 Alcohol dependence, uncomplicated (principal); F16.10 Hallucinogen abuse, uncomplicated; F12.10 Cannabis abuse, uncomplicated; F17.200 Nicotine dependence, unspecified, uncomplicated ==

== ENCOUNTER 2023-01-13 13:00 | Outpatient (RCR) | payer OTHER | END 2023-01-23 | LOC: M OUTALCOH 13:00 | PROVIDERS: ATTEND Psychiatry & Neurology Psychiatry | DX: F10.20 Alcohol dependence, uncomplicated (principal); F16.10 Hallucinogen abuse, uncomplicated; F12.10 Cannabis abuse, uncomplicated; F17.200 Nicotine dependence, unspecified, uncomplicated ==

== ENCOUNTER 2023-02-14 14:00 | Outpatient (RCR) | payer OTHER ==
[2023-02-21] MEDS ORDERED: LAMO100T3 PO (09:54)
[2023-02-21] MEDS ORDERED: OLAN1TAB16 PO (09:54)
[2023-02-21] MEDS ORDERED: LAMI25TA PO (09:54)
[2023-02-21] MEDS ORDERED: BUPR-365 PO (09:55)
[2023-02-21] MEDS ORDERED: GABA-283 PO (09:55)
[2023-02-21] MEDS ORDERED: GABA-282 PO (12:12)
[2023-02-23] MEDS ORDERED: THIA100TA PO (16:58)
[2023-02-23] MEDS ORDERED: OXAZ15CA4 PO (16:58)
[2023-02-23] MEDS ORDERED: FOLI1TAB11 PO (17:04)
[2023-02-23] MEDS ORDERED: VITMTA PO (17:04)
== END 2023-02-23 ==
LOC: M OUTALCOH 14:00
PROVIDERS: ATTEND Psychiatry & Neurology Psychiatry
DX: F10.20 Alcohol dependence, uncomplicated (principal); F16.10 Hallucinogen abuse, uncomplicated; F12.10 Cannabis abuse, uncomplicated; F17.200 Nicotine dependence, unspecified, uncomplicated

== ENCOUNTER 2023-02-21 09:44 | Inpatient (IN) | payer OTHER ==
[~2023-02-21] VITALS: Ht 160 cm; Wt 79.8 kg
[2023-02-21] MEDS ORDERED: LAMI25TA PO (09:54)
[2023-02-21] MEDS ORDERED: LAMO100T3 PO (09:54)
[2023-02-21] MEDS ORDERED: OLAN1TAB16 PO (09:54)
[2023-02-21] MEDS ORDERED: BUPR-365 PO (09:55)
[2023-02-21] MEDS ORDERED: GABA-283 PO (09:55)
[2023-02-21] MEDS ORDERED: THIAMINE 200MG 2ML VIAL IM ONE (10:10)
[2023-02-21 10:30] LABS: VENOUS BASE EXCESS -2.1 (-2.0-2.0); VENOUS HCO3 22.4 MMOL/L (23.0-27.0); VENOUS O2 SATURATION 97.8 % (60.0-80.0); VENOUS PARTIAL PRESSURE CO2 37.7 mmHg (38.0-50.0); VENOUS PARTIAL PRESSURE O2 113.1 mmHg (30.0-50.0); VENOUS PH 7.392 UNITS (7.330-7.430); VENOUS STANDARD HCO3 22.8 MMOL/L; VENOUS TOTAL CO2 23.6 MMOL/L (24.0-28.0)
[2023-02-21 10:38] LABS: BASO # 0.1 10^3/uL (0.0-0.2); BASO % 1.1 % (0.0-1.0); EOS % 0.5 % (0.0-3.0); HEMATOCRIT 41.6 % (36.0-47.0); HEMOGLOBIN 14.4 g/dl (12.0-15.5); LYMPH # 2.5 10^3/uL (1.5-5.0); LYMPH % 39.9 % (24.0-44.0); MEAN CORPUSCULAR HEMOGLOBIN 33.4 pg (27.0-33.0); MEAN CORPUSCULAR HGB CONC 34.6 g/dl (32.0-36.5); MEAN CORPUSCULAR VOLUME 96.5 fl (80.0-96.0); MONO # 0.3 10^3/uL (0.0-0.8); MONO % 5.3 % (2.0-8.0); NEUTROPHILS # 3.3 10^3/uL (1.5-8.5); PLATELET COUNT, AUTOMATED 275 10^3/uL (150-450); RED BLOOD COUNT 4.31 10^6/uL (4.00-5.40); WHITE BLOOD COUNT 6.2 10^3/uL (4.0-10.0)
[2023-02-21] MEDS ORDERED: LORazepam 2 MG TAB PO PRN (10:40)
[2023-02-21 11:01] LABS: ACETAMINOPHEN LEVEL < 2.0 UG/ML (10.0-20.0); ALBUMIN 4.2 G/DL (3.2-5.2); ALKALINE PHOSPHATASE 79 U/L (46-116); ALT/SGPT 40 U/L (7.0-40); AST/SGOT 51 U/L (<34); BILIRUBIN,DIRECT 0.1 MG/DL (<0.4); BILIRUBIN,TOTAL 0.3 MG/DL (0.3-1.2); BLOOD UREA NITROGEN 9 MG/DL (9-23); CALCIUM LEVEL 8.8 MG/DL (8.5-10.1); CARBON DIOXIDE LEVEL 22 MMOL/L (20-31); CHLORIDE LEVEL 107 MMOL/L (98-107); CREATININE FOR GFR 0.69 MG/DL (0.55-1.30); GLOMERULAR FILTRATION RATE > 60.0 (>60); GLUCOSE, FASTING 97 MG/DL (60-100); POTASSIUM SERUM 3.9 MMOL/L (3.5-5.1); SALICYLATE LEVEL < 3.0 MG/DL (<30); SODIUM LEVEL 141 MMOL/L (136-145); TOTAL PROTEIN 7.2 G/DL (5.7-8.2)
[2023-02-21 11:03] LABS: THYROID STIMULATING HORMONE 0.426 uIU/ML (0.55-4.78)
[2023-02-21 11:06] LABS: HCG, SERUM QUALITATIVE NEGATIVE (NEGATIVE); OSMOLALITY SERUM 375 MOSM/KG (275-295)
[2023-02-21 11:21] LABS: CPK CREATINE PHOSPHOKINASE 167 U/L (34-145); ETHYL ALCOHOL (ETHANOL) 0.324 % (0.000-0.010)
[2023-02-21] MEDS ORDERED: LORazepam 1 MG TAB PO STA (11:22)
[2023-02-21 11:50] LABS: AMPHETAMINES LEVEL URINE NEGATIVE (NEGATIVE); BARBITURATES URINE NEGATIVE (NEGATIVE); BENZODIAZEPINES URINE NEGATIVE (NEGATIVE); COCAINE METABOLITE URINE NEGATIVE (NEGATIVE); METHADONE URINE NEGATIVE (NEGATIVE); OPIATES URINE NEGATIVE (NEGATIVE); PHENCYCLIDINE URINE NEGATIVE (NEGATIVE)
[2023-02-21 12:11] LABS: CANNABINOIDS URINE POSITIVE (NEGATIVE)
[2023-02-21] MEDS ORDERED: GABA-282 PO (12:12)
[2023-02-21] MEDS ORDERED: HOME MED LIST COMPLETE! XX SCH (12:15)
[2023-02-21] MEDS ORDERED: MAALOX 30 ML SUSP *UDC PO PRN (12:20)
[2023-02-21] MEDS ORDERED: ONDANSETRON 4MG 2ML VIAL IV PRN (14:10)
[2023-02-21] MEDS ORDERED: PANTOPRAZOLE 40MG TAB (PROTONIX) PO ONE (14:10)
[2023-02-21] MEDS ORDERED: NS 1,000 ML IV ONE ×2 (14:10→15:00)
[2023-02-21 14:15] VITALS: BP 126/85
[2023-02-21] MEDS: GABAPENTIN 300 MG CAP PO SCH ×2 (14:27→22:14)
[2023-02-21] MEDS: OXAZEPAM 10MG CAP PO SCH ×2 (14:27→18:21)
[2023-02-21] MEDS: lamoTRIgine 100MG TAB PO SCH (14:28)
[2023-02-21] MEDS: FOLIC ACID 1MG TAB PO SCH (14:28)
[2023-02-21] MEDS: OLANZapine 5 MG TAB PO SCH (14:28)
[2023-02-21] MEDS: MULTIVITAMINS/MINERALS THERAP 1 TAB PO SCH (14:28)
[2023-02-21] MEDS: LORazepam 2 MG TAB PO PRN ×2 (14:28→22:43)
[2023-02-21] MEDS: ENOXAPARIN 40MG/0.4ML SYRINGE (J1650 PER 10MG) SC SCH (14:29)
[2023-02-21] MEDS: THIAMINE 100 MG TAB PO SCH ×2 (15:30→22:14)
[2023-02-21] MEDS: lamoTRIgine 25MG TAB PO SCH (15:40)
[2023-02-21] MEDS: NICOTINE 21MG/24HR 1 EA TRANSDERMAL TD SCH (15:40)
[2023-02-21 20:00] VITALS: BP 118/71
[2023-02-21] MEDS ORDERED: THIAMINE 100 MG TAB PO SCH (21:00)
[2023-02-21 22:00] VITALS: BP 118/71
[2023-02-22] VITALS (7 sets, daily range): BP systolic 120–147; BP diastolic 80–96
[2023-02-22] MEDS: OXAZEPAM 10MG CAP PO SCH ×5 (00:50→23:52)
[2023-02-22 07:38] LABS: BASO # 0.1 10^3/uL (0.0-0.2); BASO % 1.3 % (0.0-1.0); EOS # 0.1 10^3/uL (0.0-0.5); EOS % 2.6 % (0.0-3.0); HEMATOCRIT 38.9 % (36.0-47.0); HEMOGLOBIN 13.1 g/dl (12.0-15.5); LYMPH # 1.9 10^3/uL (1.5-5.0); MEAN CORPUSCULAR HEMOGLOBIN 32.8 pg (27.0-33.0); MEAN CORPUSCULAR HGB CONC 33.7 g/dl (32.0-36.5); MEAN CORPUSCULAR VOLUME 97.5 fl (80.0-96.0); MONO # 0.5 10^3/uL (0.0-0.8); MONO % 10.7 % (2.0-8.0); NEUTROPHILS # 2.1 10^3/uL (1.5-8.5); PLATELET COUNT, AUTOMATED 180 10^3/uL (150-450); RED BLOOD COUNT 3.99 10^6/uL (4.00-5.40); WHITE BLOOD COUNT 4.7 10^3/uL (4.0-10.0)
[2023-02-22 08:18] LABS: ALBUMIN 3.4 G/DL (3.2-5.2); ALKALINE PHOSPHATASE 63 U/L (46-116); ALT/SGPT 33 U/L (7.0-40); AST/SGOT 47 U/L (<34); BLOOD UREA NITROGEN 13 MG/DL (9-23); CALCIUM LEVEL 8.7 MG/DL (8.5-10.1); CARBON DIOXIDE LEVEL 24 MMOL/L (20-31); CHLORIDE LEVEL 103 MMOL/L (98-107); CREATININE FOR GFR 0.75 MG/DL (0.55-1.30); FREE T3 2.8 PG/ML (2.3-4.2); FREE T4 0.77 NG/DL (0.89-1.76); GLOMERULAR FILTRATION RATE > 60.0 (>60); GLUCOSE, FASTING 79 MG/DL (60-100); POTASSIUM SERUM 4.3 MMOL/L (3.5-5.1); SODIUM LEVEL 136 MMOL/L (136-145); THYROID STIMULATING HORMONE 1.345 uIU/ML (0.55-4.78); TOTAL PROTEIN 6.1 G/DL (5.7-8.2)
[2023-02-22] MEDS: lamoTRIgine 25MG TAB PO SCH (08:51)
[2023-02-22] MEDS: lamoTRIgine 100MG TAB PO SCH (08:51)
[2023-02-22] MEDS: THIAMINE 100 MG TAB PO SCH ×2 (08:51→20:53)
[2023-02-22] MEDS: NICOTINE 21MG/24HR 1 EA TRANSDERMAL TD SCH (08:51)
[2023-02-22] MEDS: ADDERALL 5 MG TAB PO SCH ×2 (08:51→12:45)
[2023-02-22] MEDS: OLANZapine 5 MG TAB PO SCH (08:52)
[2023-02-22] MEDS: GABAPENTIN 300 MG CAP PO SCH ×2 (08:52→20:53)
[2023-02-22] MEDS: FOLIC ACID 1MG TAB PO SCH (08:52)
[2023-02-22] MEDS: MULTIVITAMINS/MINERALS THERAP 1 TAB PO SCH (08:52)
[2023-02-22] MEDS: ENOXAPARIN 40MG/0.4ML SYRINGE (J1650 PER 10MG) SC SCH (08:52)
[2023-02-22] MEDS: PANTOPRAZOLE 40MG TAB (PROTONIX) PO SCH (08:52)
[2023-02-22] MEDS ORDERED: FOLIC ACID 1MG TAB PO SCH (09:00)
[2023-02-22] MEDS ORDERED: MULTIVITAMINS/MINERALS THERAP 1 TAB PO SCH (09:00)
[2023-02-22] MEDS: LORazepam 2 MG TAB PO PRN ×3 (09:02→18:10)
[2023-02-22 11:34] LABS: HEPATITIS B SURFACE ANTIGEN NEGATIVE (NEGATIVE)
[2023-02-22 11:54] LABS: HEPATITIS B CORE ANTIBODY IGM NEGATIVE (NEGATIVE)
[2023-02-22 11:56] LABS: HEPATITIS C VIRUS ABY INDEX > 11.0 INDEX (<0.8)
[2023-02-22] MEDS ORDERED: ACETAMINOPHEN TAB 650MG DOSE (2X325MG) PO PRN (20:15)
[2023-02-23 05:54] VITALS: BP 132/78
[2023-02-23 06:00] VITALS: BP 137/78
[2023-02-23] MEDS: OXAZEPAM 10MG CAP PO SCH (06:03)
[2023-02-23] MEDS: LORazepam 2 MG TAB PO PRN (06:07)
[2023-02-23 06:25] LABS: BASO % 0.9 % (0.0-1.0); EOS # 0.2 10^3/uL (0.0-0.5); EOS % 4.3 % (0.0-3.0); HEMATOCRIT 39.7 % (36.0-47.0); HEMOGLOBIN 13.7 g/dl (12.0-15.5); LYMPH # 1.6 10^3/uL (1.5-5.0); LYMPH % 38.2 % (24.0-44.0); MEAN CORPUSCULAR HEMOGLOBIN 33.1 pg (27.0-33.0); MEAN CORPUSCULAR HGB CONC 34.5 g/dl (32.0-36.5); MEAN CORPUSCULAR VOLUME 95.9 fl (80.0-96.0); MONO # 0.4 10^3/uL (0.0-0.8); MONO % 9.7 % (2.0-8.0); NEUTROPHILS % 46.9 % (36.0-66.0); PLATELET COUNT, AUTOMATED 163 10^3/uL (150-450); RED BLOOD COUNT 4.14 10^6/uL (4.00-5.40); WHITE BLOOD COUNT 4.2 10^3/uL (4.0-10.0)
[2023-02-23 07:04] LABS: BLOOD UREA NITROGEN 7 MG/DL (9-23); CALCIUM LEVEL 9.7 MG/DL (8.5-10.1); CARBON DIOXIDE LEVEL 24 MMOL/L (20-31); CHLORIDE LEVEL 103 MMOL/L (98-107); GLOMERULAR FILTRATION RATE > 60.0 (>60); GLUCOSE, FASTING 83 MG/DL (60-100); SODIUM LEVEL 136 MMOL/L (136-145)
[2023-02-23 07:06] VITALS: BP 108/64
[2023-02-23] MEDS: ENOXAPARIN 40MG/0.4ML SYRINGE (J1650 PER 10MG) SC SCH (09:18)
[2023-02-23] MEDS: OLANZapine 5 MG TAB PO SCH (09:19)
[2023-02-23] MEDS: lamoTRIgine 100MG TAB PO SCH (09:19)
[2023-02-23] MEDS: lamoTRIgine 25MG TAB PO SCH (09:19)
[2023-02-23] MEDS: MULTIVITAMINS/MINERALS THERAP 1 TAB PO SCH (09:19)
[2023-02-23] MEDS: NICOTINE 21MG/24HR 1 EA TRANSDERMAL TD SCH (09:19)
[2023-02-23] MEDS: ADDERALL 5 MG TAB PO SCH ×2 (09:19→11:39)
[2023-02-23] MEDS: GABAPENTIN 300 MG CAP PO SCH (09:20)
[2023-02-23] MEDS: THIAMINE 100 MG TAB PO SCH (09:20)
[2023-02-23] MEDS: PANTOPRAZOLE 40MG TAB (PROTONIX) PO SCH (09:20)
[2023-02-23] MEDS: FOLIC ACID 1MG TAB PO SCH (09:20)
[2023-02-23 11:09] VITALS: BP 112/80
[2023-02-23] MEDS ORDERED: OXAZEPAM 15MG CAP PO SCH ×2 (12:00→22:00)
[2023-02-23 14:00] VITALS: BP 135/92
[2023-02-23] MEDS ORDERED: THIA100TA PO (16:58)
[2023-02-23] MEDS ORDERED: OXAZ15CA4 PO (16:58)
[2023-02-23] MEDS ORDERED: VITMTA PO (17:04)
[2023-02-23] MEDS ORDERED: FOLI1TAB11 PO (17:04)
[2023-02-24] MEDS ORDERED: THIAMINE 100 MG TAB PO SCH (09:00)
== END 2023-02-23 18:16 | DRG 775 ==
LOC: M ED 09:44 → M ED INP 12:18 → ENRESERV 12:51 → M MSPAV 14:11
PROVIDERS: ADMIT Internal Medicine Nephrology; ATTEND Internal Medicine
DX: F10.239 Alcohol dependence with withdrawal, unspecified (principal); R45.851 Suicidal ideations; F31.9 Bipolar disorder, unspecified; F50.2 Bulimia nervosa; F43.10 Post-traumatic stress disorder, unspecified; F60.3 Borderline personality disorder; F90.9 Attention-deficit hyperactivity disorder, unspecified type; K21.9 Gastro-esophageal reflux disease without esophagitis; F17.200 Nicotine dependence, unspecified, uncomplicated; F41.9 Anxiety disorder, unspecified; Z88.0 Allergy status to penicillin; Z91.040 Latex allergy status; Z79.899 Other long term (current) drug therapy

== ENCOUNTER 2023-02-23 17:25 | Inpatient (IN) | payer OTHER ==
[~2023-02-23] VITALS: Ht 160 cm; Wt 77.1 kg
[~2023-02-23 17:25] MED LIST changes: +FOLI1TAB11 PO; +GABA-283 PO; +LAMI25TA PO; +OLAN1TAB16 PO; +OXAZ15CA4 PO; +THIA100TA PO; +VITMTA PO
[2023-02-23] MEDS ORDERED: ACETAMINOPHEN TAB 650MG DOSE (2X325MG) PO PRN (17:30)
[2023-02-23] MEDS ORDERED: MOM 30ML SUSPENSION UDC PO PRN (17:30)
[2023-02-23] MEDS ORDERED: IBUPROFEN 400MG TAB PO PRN (17:30)
[2023-02-23] MEDS ORDERED: MAALOX 30 ML SUSP *UDC PO PRN (17:30)
[2023-02-23 19:17] VITALS: BP 147/118
[2023-02-23 19:18] VITALS: BP 147/118
[2023-02-23] MEDS: diphenhydrAMINE 25MG CAP PO PRN (19:35)
[2023-02-23] MEDS: LORazepam 2 MG TAB PO PRN ×2 (19:36→21:05)
[2023-02-23] MEDS: THIAMINE 100 MG TAB PO SCH (20:15)
[2023-02-23] MEDS: GABAPENTIN 300 MG CAP PO SCH (20:15)
[2023-02-23 21:00] VITALS: BP 136/93
[2023-02-23] MEDS ORDERED: QUEtiapine FUMARATE 50MG TAB PO SCH (21:00)
[2023-02-23] MEDS: OXAZEPAM 15MG CAP PO SCH (21:05)
[2023-02-23 23:01] VITALS: BP 145/89
[2023-02-24 01:02] VITALS: BP 139/75
[2023-02-24] MEDS: LORazepam 2 MG TAB PO PRN ×3 (01:06→11:46)
[2023-02-24 01:08] VITALS: BP 139/75
[2023-02-24] MEDS: OXAZEPAM 15MG CAP PO SCH ×3 (06:09→21:15)
[2023-02-24 06:30] VITALS: BP 126/82
[2023-02-24] MEDS: diphenhydrAMINE 25MG CAP PO PRN (06:38)
[2023-02-24 06:47] VITALS: BP 126/82
[2023-02-24] MEDS: OLANZapine 5 MG TAB PO SCH (08:09)
[2023-02-24] MEDS: MULTIVITAMINS/MINERALS THERAP 1 TAB PO SCH (08:09)
[2023-02-24] MEDS: PANTOPRAZOLE 40MG TAB (PROTONIX) PO SCH (08:09)
[2023-02-24] MEDS: THIAMINE 100 MG TAB PO SCH ×2 (08:09→20:31)
[2023-02-24] MEDS: lamoTRIgine 100MG TAB PO SCH (08:10)
[2023-02-24] MEDS: GABAPENTIN 300 MG CAP PO SCH ×3 (08:10→20:31)
[2023-02-24] MEDS: FOLIC ACID 1MG TAB PO SCH (08:10)
[2023-02-24] MEDS: ADDERALL 5 MG TAB PO SCH ×2 (08:11→11:45)
[2023-02-24] MEDS: lamoTRIgine 25MG TAB PO SCH (08:11)
[2023-02-24] MEDS: NICOTINE 21MG/24HR 1 EA TRANSDERMAL TD SCH (08:13)
[2023-02-24 09:09] VITALS: BP 130/89
[2023-02-24 10:16] LABS: FREE T4 1.02 NG/DL (0.89-1.76)
[2023-02-24 10:25] LABS: THYROGLOBULIN ANTIBODY < 15.0 U/ML (<60.0); THYROID PEROXIDASE ANTIBODY < 28.0 U/ML (<60.0)
[2023-02-24 11:23] VITALS: BP 135/96
[2023-02-24] MEDS: NALTREXONE 50 MG TAB PO SCH (14:18)
[2023-02-24] MEDS: QUEtiapine FUMARATE 100 MG TAB PO SCH (20:31)
[2023-02-25] MEDS: OXAZEPAM 15MG CAP PO SCH ×2 (06:05→17:45)
[2023-02-25 06:39] VITALS: BP 118/67
[2023-02-25 07:44] LABS: CHOLESTEROL RISK RATIO 2.42 (<5); LDL CHOLESTEROL 123.8 MG/DL (<100)
[2023-02-25] MEDS: THIAMINE 100 MG TAB PO SCH ×2 (08:12→20:16)
[2023-02-25] MEDS: GABAPENTIN 300 MG CAP PO SCH ×3 (08:12→20:16)
[2023-02-25] MEDS: PANTOPRAZOLE 40MG TAB (PROTONIX) PO SCH (08:12)
[2023-02-25] MEDS: OLANZapine 5 MG TAB PO SCH (08:12)
[2023-02-25] MEDS: ADDERALL 5 MG TAB PO SCH ×2 (08:12→12:05)
[2023-02-25] MEDS: MULTIVITAMINS/MINERALS THERAP 1 TAB PO SCH (08:12)
[2023-02-25] MEDS: lamoTRIgine 25MG TAB PO SCH (08:12)
[2023-02-25] MEDS: lamoTRIgine 100MG TAB PO SCH (08:13)
[2023-02-25] MEDS: FOLIC ACID 1MG TAB PO SCH (08:13)
[2023-02-25] MEDS: NALTREXONE 50 MG TAB PO SCH (08:13)
[2023-02-25] MEDS: NICOTINE 21MG/24HR 1 EA TRANSDERMAL TD SCH (08:16)
[2023-02-25] MEDS: NICOTINE POLACRILEX 2 MG GUM PO PRN ×3 (11:21→21:03)
[2023-02-25 19:32] VITALS: BP 141/89
[2023-02-25] MEDS: QUEtiapine FUMARATE 100 MG TAB PO SCH (20:16)
[2023-02-25] MEDS: traZODone 50 MG TAB PO PRN (22:18)
[2023-02-26] MEDS: OXAZEPAM 15MG CAP PO SCH ×2 (06:05→18:04)
[2023-02-26 06:21] VITALS: BP 112/59
[2023-02-26] MEDS: GABAPENTIN 300 MG CAP PO SCH ×3 (08:16→20:01)
[2023-02-26] MEDS: lamoTRIgine 25MG TAB PO SCH (08:16)
[2023-02-26] MEDS: lamoTRIgine 100MG TAB PO SCH (08:16)
[2023-02-26] MEDS: ADDERALL 5 MG TAB PO SCH ×2 (08:16→12:22)
[2023-02-26] MEDS: NALTREXONE 50 MG TAB PO SCH (08:16)
[2023-02-26] MEDS: THIAMINE 100 MG TAB PO SCH (08:16)
[2023-02-26] MEDS: FOLIC ACID 1MG TAB PO SCH (08:16)
[2023-02-26] MEDS: PANTOPRAZOLE 40MG TAB (PROTONIX) PO SCH (08:16)
[2023-02-26] MEDS: MULTIVITAMINS/MINERALS THERAP 1 TAB PO SCH (08:16)
[2023-02-26] MEDS: OLANZapine 5 MG TAB PO SCH (08:16)
[2023-02-26] MEDS: NICOTINE POLACRILEX 2 MG GUM PO PRN ×3 (08:19→18:04)
[2023-02-26] MEDS: diphenhydrAMINE 25MG CAP PO PRN (14:57)
[2023-02-26 18:06] VITALS: BP 130/76
[2023-02-26] MEDS: QUEtiapine FUMARATE 100 MG TAB PO SCH (20:01)
[2023-02-26] MEDS: traZODone 50 MG TAB PO PRN (21:36)
[2023-02-27] MEDS: OXAZEPAM 15MG CAP PO SCH ×2 (06:03→18:15)
[2023-02-27 06:12] VITALS: BP 102/57
[2023-02-27] MEDS: NICOTINE POLACRILEX 2 MG GUM PO PRN ×4 (07:59→20:30)
[2023-02-27] MEDS: ADDERALL 5 MG TAB PO SCH ×2 (07:59→12:09)
[2023-02-27] MEDS: MULTIVITAMINS/MINERALS THERAP 1 TAB PO SCH (08:01)
[2023-02-27] MEDS: lamoTRIgine 100MG TAB PO SCH (08:02)
[2023-02-27] MEDS: PANTOPRAZOLE 40MG TAB (PROTONIX) PO SCH (08:02)
[2023-02-27] MEDS: OLANZapine 5 MG TAB PO SCH (08:02)
[2023-02-27] MEDS: lamoTRIgine 25MG TAB PO SCH (08:02)
[2023-02-27] MEDS: FOLIC ACID 1MG TAB PO SCH (08:02)
[2023-02-27] MEDS: GABAPENTIN 300 MG CAP PO SCH ×3 (08:02→20:29)
[2023-02-27] MEDS: NALTREXONE 50 MG TAB PO SCH (08:02)
[2023-02-27] MEDS: diphenhydrAMINE 25MG CAP PO PRN ×2 (16:25→22:56)
[2023-02-27 18:00] VITALS: BP 129/69
[2023-02-27] MEDS: QUEtiapine FUMARATE 100 MG TAB PO SCH (20:29)
[2023-02-27] MEDS: traZODone 50 MG TAB PO PRN (22:56)
[2023-02-28 06:22] VITALS: BP 108/62
[2023-02-28] MEDS: NALTREXONE 50 MG TAB PO SCH (08:08)
[2023-02-28] MEDS: lamoTRIgine 100MG TAB PO SCH (08:08)
[2023-02-28] MEDS: OLANZapine 5 MG TAB PO SCH (08:08)
[2023-02-28] MEDS: PANTOPRAZOLE 40MG TAB (PROTONIX) PO SCH (08:08)
[2023-02-28] MEDS: lamoTRIgine 25MG TAB PO SCH (08:08)
[2023-02-28] MEDS: GABAPENTIN 300 MG CAP PO SCH (08:08)
[2023-02-28] MEDS: ADDERALL 5 MG TAB PO SCH ×2 (08:08→11:59)
[2023-02-28] MEDS: FOLIC ACID 1MG TAB PO SCH (08:08)
[2023-02-28] MEDS: MULTIVITAMINS/MINERALS THERAP 1 TAB PO SCH (08:09)
[2023-02-28] MEDS: NICOTINE POLACRILEX 2 MG GUM PO PRN ×2 (08:09→12:18)
[2023-02-28] MEDS ORDERED: QUET100T2 PO (08:54)
[2023-02-28] MEDS ORDERED: LAMO100T3 PO (08:54)
[2023-02-28] MEDS ORDERED: OLAN1TAB16 PO (08:54)
[2023-02-28] MEDS ORDERED: BENA25CA4 PO (08:54)
[2023-02-28] MEDS ORDERED: TRAZ-252 PO (08:54)
[2023-02-28] MEDS ORDERED: LAMI25TA PO (08:54)
[2023-02-28] MEDS ORDERED: NALT50TA4 PO (08:54)
[2023-02-28] MEDS ORDERED: ADDE30TA PO (08:54)
[2023-02-28] MEDS ORDERED: GABA-282 PO (08:54)
[2023-02-28] MEDS ORDERED: OXAZEPAM 15MG CAP PO ONE (09:00)
== END 2023-02-28 13:03 | disposition home or self-care (01) | DRG 755 ==
LOC: M ED INP 17:30 → M PSY 18:17
PROVIDERS: ADMIT Student in an Organized Health Care Education/Training Program; ATTEND Student in an Organized Health Care Education/Training Program
DX: F43.10 Post-traumatic stress disorder, unspecified (principal); F50.2 Bulimia nervosa; R45.851 Suicidal ideations; F31.9 Bipolar disorder, unspecified; F90.9 Attention-deficit hyperactivity disorder, unspecified type; F10.20 Alcohol dependence, uncomplicated; F17.200 Nicotine dependence, unspecified, uncomplicated; F60.3 Borderline personality disorder; F12.10 Cannabis abuse, uncomplicated; E07.9 Disorder of thyroid, unspecified; R74.01 Elevation of levels of liver transaminase levels; Z81.8 Family history of other mental and behavioral disorders; Z79.899 Other long term (current) drug therapy; Z88.0 Allergy status to penicillin; Z63.0 Problems in relationship with spouse or partner; B18.2 Chronic viral hepatitis C

== ENCOUNTER 2023-03-24 12:52 | Outpatient (RCR) | payer OTHER ==
[~2023-03-24 12:52] MED LIST changes: +NALT50TA4 PO; +QUET100T2 PO; +TRAZ-252 PO
== END 2023-03-25 ==
LOC: M OUTALCOH 12:52
PROVIDERS: ATTEND Psychiatry & Neurology Psychiatry
DX: F10.20 Alcohol dependence, uncomplicated (principal); F16.10 Hallucinogen abuse, uncomplicated; F12.10 Cannabis abuse, uncomplicated; F17.200 Nicotine dependence, unspecified, uncomplicated

== ENCOUNTER 2023-04-17 10:41 | Inpatient (IN) | payer OTHER ==
[~2023-04-17] VITALS: Ht 160 cm; Wt 71.6 kg
[~2023-04-17 10:41] MED LIST changes: +UNRESOLVED CLARIFICATION ENTRY XX SCH
[2023-04-17] MEDS ORDERED: LORazepam 2 MG/ML 1ML VIAL IV STA (11:04)
[2023-04-17] MEDS ORDERED: METOCLOPRAMIDE 10MG TAB PO PRN (11:05)
[2023-04-17] MEDS ORDERED: MED REC IN PROGRESS XX SCH (11:10)
[2023-04-17] MEDS ORDERED: NS 1,000 ML IV ONE ×2 (11:25→15:10)
[2023-04-17] MEDS ORDERED: MED REC CURRENTLY UNOBTAINABLE XX SCH (11:35)
[2023-04-17 12:05] LABS: HEMOGLOBIN 15.1 g/dl (12.0-15.5); MEAN CORPUSCULAR HEMOGLOBIN 31.8 pg (27.0-33.0); MEAN CORPUSCULAR HGB CONC 32.1 g/dl (32.0-36.5); MEAN CORPUSCULAR VOLUME 98.9 fl (80.0-96.0); PLATELET COUNT, AUTOMATED 324 10^3/uL (150-450); RED BLOOD COUNT 4.75 10^6/uL (4.00-5.40); WHITE BLOOD COUNT 6.9 10^3/uL (4.0-10.0)
[2023-04-17 12:24] LABS: HCG, SERUM QUALITATIVE NEGATIVE (NEGATIVE)
[2023-04-17 12:26] LABS: ETHYL ALCOHOL (ETHANOL) < 0.003 % (0.000-0.010)
[2023-04-17 12:28] LABS: ACETAMINOPHEN LEVEL < 2.0 UG/ML (10.0-20.0); SALICYLATE LEVEL < 3.0 MG/DL (<30)
[2023-04-17 12:30] LABS: THYROID STIMULATING HORMONE 1.119 uIU/ML (0.55-4.78)
[2023-04-17 12:33] LABS: ALBUMIN 4.9 G/DL (3.2-5.2); ALKALINE PHOSPHATASE 71 U/L (46-116); ALT/SGPT 36 U/L (7.0-40); AST/SGOT 37 U/L (<34); BILIRUBIN,DIRECT 0.1 MG/DL (<0.4); BILIRUBIN,TOTAL 0.5 MG/DL (0.3-1.2); BLOOD UREA NITROGEN 11 MG/DL (9-23); CALCIUM LEVEL 9.5 MG/DL (8.5-10.1); CARBON DIOXIDE LEVEL < 10.0 MMOL/L (20-31); CHLORIDE LEVEL 101 MMOL/L (98-107); CREATININE FOR GFR 0.71 MG/DL (0.55-1.30); GLOMERULAR FILTRATION RATE > 60.0 (>60); GLUCOSE, FASTING 71 MG/DL (60-100); POTASSIUM SERUM 4.5 MMOL/L (3.5-5.1); SODIUM LEVEL 134 MMOL/L (136-145); TOTAL PROTEIN 8.4 G/DL (5.7-8.2)
[2023-04-17 14:53] LABS: VENOUS BASE EXCESS -16.6 (-2.0-2.0); VENOUS HCO3 9.6 MMOL/L (23.0-27.0); VENOUS PARTIAL PRESSURE O2 72.4 mmHg (30.0-50.0); VENOUS PH 7.201 UNITS (7.330-7.430); VENOUS STANDARD HCO3 12.2 MMOL/L; VENOUS TOTAL CO2 10.3 MMOL/L (24.0-28.0)
[2023-04-17 15:31] LABS: AMPHETAMINES LEVEL URINE NEGATIVE (NEGATIVE); BARBITURATES URINE NEGATIVE (NEGATIVE); BENZODIAZEPINES URINE NEGATIVE (NEGATIVE); COCAINE METABOLITE URINE NEGATIVE (NEGATIVE)
[2023-04-17 15:32] LABS: METHADONE URINE NEGATIVE (NEGATIVE); OPIATES URINE NEGATIVE (NEGATIVE); PHENCYCLIDINE URINE NEGATIVE (NEGATIVE)
[2023-04-17 15:34] LABS: OSMOLALITY SERUM 297 MOSM/KG (275-295)
[2023-04-17 15:38] LABS: CANNABINOIDS URINE POSITIVE (NEGATIVE)
[2023-04-17 15:39] LABS: ACETONE/KETONE > 4.50 MMOL/L (0.02-0.27); BLOOD UREA NITROGEN 12 MG/DL (9-23); CALCIUM LEVEL 8.9 MG/DL (8.5-10.1); CARBON DIOXIDE LEVEL < 10.0 MMOL/L (20-31); CHLORIDE LEVEL 105 MMOL/L (98-107); CREATININE FOR GFR 0.65 MG/DL (0.55-1.30); GLOMERULAR FILTRATION RATE > 60.0 (>60); GLUCOSE, FASTING 67 MG/DL (60-100); POTASSIUM SERUM 4.2 MMOL/L (3.5-5.1); SODIUM LEVEL 134 MMOL/L (136-145)
[2023-04-17] MEDS ORDERED: THIAMINE 200MG 2ML VIAL IM ONE (16:00)
[2023-04-17] MEDS ORDERED: D5W/0.9% SODIUM CHLORIDE 1,000 ML IV ONE (16:00)
[2023-04-17 16:24] LABS: LIPASE 27 U/L (12-53)
[2023-04-17 16:26] LABS: PHOSPHORUS LEVEL 2.2 MG/DL (2.5-4.9)
[2023-04-17] MEDS ORDERED: LORazepam 2 MG TAB PO PRN (16:40)
[2023-04-17] MEDS ORDERED: DIPH-435 PO (16:41)
[2023-04-17] MEDS ORDERED: TRAZ-252 PO (16:41)
[2023-04-17] MEDS ORDERED: MAALOX 30 ML SUSP *UDC PO PRN (16:45)
[2023-04-17] MEDS ORDERED: NEUR300C PO (16:45)
[2023-04-17] MEDS ORDERED: LAMO25TA4 PO (16:47)
[2023-04-17] MEDS ORDERED: LAMO100T3 PO (16:50)
[2023-04-17] MEDS ORDERED: VITA100T28 PO (16:54)
[2023-04-17] MEDS ORDERED: QUET100T2 PO (16:54)
[2023-04-17] MEDS ORDERED: OLAN1TAB16 PO (16:54)
[2023-04-17] MEDS ORDERED: HOME MED LIST COMPLETE! XX SCH (17:00)
[2023-04-17] MEDS: PANTOPRAZOLE 40MG VIAL IV SCH (17:21)
[2023-04-17 17:41] LABS: APPEARANCE, URINE HAZY (CLEAR); BACTERIA, URINE AUTO NEGATIVE (NEGATIVE); BILIRUBIN, URINE AUTO NEGATIVE (NEGATIVE); BLOOD, URINE BLOOD 1+ (NEGATIVE); COLOR, URINE YELLOW (YELLOW); GLUCOSE, URINE (UA) AUTO NEGATIVE (NEGATIVE); KETONE, URINE AUTO 2+ mg/dL (NEGATIVE); LEUKOCYTE ESTERASE, URINE AUTO NEGATIVE (NEGATIVE); MUCUS, URINE SMALL (NEGATIVE); NITRITE, URINE AUTO NEGATIVE (NEGATIVE); PROTEIN, URINE AUTO 2+ mg/dL (NEGATIVE); RBC, URINE AUTO 0 /HPF (0-3); SPECIFIC GRAVITY URINE AUTO 1.021 (1.002-1.035); SQUAMOUS EPITHELIAL CELL UR AU 9 /HPF (0-6); UROBILINOGEN, URINE AUTO 0.2 mg/dL (0.0-2.0); WBC, URINE AUTO 1 /HPF (0-3)
[2023-04-17] MEDS ORDERED: MULTIVITAMIN -ADULT INJECTION 10 ML, THIAMINE INJection 100 MG, FOLIC ACID 1 MG in NS 1... IV ONE (18:00)
[2023-04-17] MEDS ORDERED: ACETAMINOPHEN TAB 650MG DOSE (2X325MG) PO PRN (20:00)
[2023-04-17] MEDS: LR 1,000 ML IV SCH (20:07)
[2023-04-17 20:33] LABS: BLOOD UREA NITROGEN 10 MG/DL (9-23); CALCIUM LEVEL 7.6 MG/DL (8.5-10.1); CARBON DIOXIDE LEVEL 11 MMOL/L (20-31); CHLORIDE LEVEL 109 MMOL/L (98-107); CREATININE FOR GFR 0.65 MG/DL (0.55-1.30); GLOMERULAR FILTRATION RATE > 60.0 (>60); GLUCOSE, FASTING 193 MG/DL (60-100); POTASSIUM SERUM 4.2 MMOL/L (3.5-5.1); SODIUM LEVEL 136 MMOL/L (136-145)
[2023-04-17 20:58] VITALS: BP 124/77; TEMP 98.9; O2SAT 98
[2023-04-17] MEDS ORDERED: hydrOXYzine 50 MG TAB PO ONE (21:35)
[2023-04-17 23:36] VITALS: BP 99/53; TEMP 97.3; O2SAT 98
[2023-04-18 03:37] VITALS: BP 107/67; TEMP 97.8; O2SAT 96
[2023-04-18 05:11] LABS: HEMATOCRIT 36.2 % (36.0-47.0); MEAN CORPUSCULAR HEMOGLOBIN 32.3 pg (27.0-33.0); MEAN CORPUSCULAR HGB CONC 33.1 g/dl (32.0-36.5); MEAN CORPUSCULAR VOLUME 97.3 fl (80.0-96.0); PLATELET COUNT, AUTOMATED 226 10^3/uL (150-450); RED BLOOD COUNT 3.72 10^6/uL (4.00-5.40); WHITE BLOOD COUNT 5.6 10^3/uL (4.0-10.0)
[2023-04-18 05:36] LABS: BLOOD UREA NITROGEN 7 MG/DL (9-23); CARBON DIOXIDE LEVEL 16 MMOL/L (20-31); CHLORIDE LEVEL 110 MMOL/L (98-107); GLOMERULAR FILTRATION RATE > 60.0 (>60); GLUCOSE, FASTING 81 MG/DL (60-100); MAGNESIUM LEVEL 1.8 MG/DL (1.8-2.4); POTASSIUM SERUM 3.8 MMOL/L (3.5-5.1); SODIUM LEVEL 139 MMOL/L (136-145)
[2023-04-18] MEDS: LR 1,000 ML IV SCH ×3 (08:00→10:51)
[2023-04-18 08:20] VITALS: BP 104/69; TEMP 97.4; O2SAT 97
[2023-04-18] MEDS: NICOTINE 21MG/24HR 1 EA TRANSDERMAL TD PRN (08:42)
[2023-04-18] MEDS: ENOXAPARIN 40MG/0.4ML SYRINGE (J1650 PER 10MG) SC SCH (08:42)
[2023-04-18] MEDS: FOLIC ACID 1MG TAB PO SCH (08:43)
[2023-04-18] MEDS: PANTOPRAZOLE 40MG VIAL IV SCH (08:43)
[2023-04-18] MEDS: MULTIVITAMINS/MINERALS THERAP 1 TAB PO SCH (08:43)
[2023-04-18] MEDS: THIAMINE 100 MG TAB PO SCH ×2 (08:43→20:14)
[2023-04-18] MEDS: GABAPENTIN 300 MG CAP PO SCH ×3 (10:59→20:14)
[2023-04-18] MEDS: OLANZapine 5 MG TAB PO SCH (11:41)
[2023-04-18] MEDS: NALTREXONE 50 MG TAB PO SCH (11:41)
[2023-04-18 12:10] VITALS: BP 115/63; TEMP 97.8; O2SAT 98
[2023-04-18 16:20] VITALS: BP 104/67; TEMP 98.4; O2SAT 96
[2023-04-18 20:21] VITALS: BP 107/69; TEMP 99.3; O2SAT 97
[2023-04-18] MEDS ORDERED: traZODone 50 MG TAB PO SCH (21:00)
[2023-04-18] MEDS ORDERED: lamoTRIgine 25MG TAB PO SCH (21:00)
[2023-04-18] MEDS ORDERED: lamoTRIgine 100MG TAB PO SCH (21:00)
[2023-04-18] MEDS ORDERED: QUEtiapine FUMARATE 100 MG TAB PO SCH (21:00)
[2023-04-18 23:21] VITALS: BP 106/55; TEMP 98.3; O2SAT 96
[2023-04-19] MEDS: LR 1,000 ML IV SCH (00:03)
[2023-04-19 04:12] VITALS: BP 99/63; TEMP 97.1; O2SAT 96
[2023-04-19 06:17] LABS: HEMATOCRIT 36.1 % (36.0-47.0); HEMOGLOBIN 12.3 g/dl (12.0-15.5); MEAN CORPUSCULAR HEMOGLOBIN 31.5 pg (27.0-33.0); MEAN CORPUSCULAR HGB CONC 34.1 g/dl (32.0-36.5); MEAN CORPUSCULAR VOLUME 92.6 fl (80.0-96.0); PLATELET COUNT, AUTOMATED 198 10^3/uL (150-450); WHITE BLOOD COUNT 3.8 10^3/uL (4.0-10.0)
[2023-04-19 06:47] LABS: BLOOD UREA NITROGEN < 5 MG/DL (9-23); CALCIUM LEVEL 8.4 MG/DL (8.5-10.1); CARBON DIOXIDE LEVEL 27 MMOL/L (20-31); CHLORIDE LEVEL 106 MMOL/L (98-107); GLOMERULAR FILTRATION RATE > 60.0 (>60); GLUCOSE, FASTING 97 MG/DL (60-100); MAGNESIUM LEVEL 1.5 MG/DL (1.8-2.4); SODIUM LEVEL 139 MMOL/L (136-145)
[2023-04-19] MEDS ORDERED: POTASSIUM CHLORIDE 10MEQ SR TABLET PO ONE ×2 (08:00→12:00)
[2023-04-19] MEDS ORDERED: MAG SULF 1GM/100ML (MAG RUN) 1 GM in IV 1 EA IV ONE (08:00)
[2023-04-19] MEDS: PANTOPRAZOLE 40MG VIAL IV SCH (08:07)
[2023-04-19] MEDS: ENOXAPARIN 40MG/0.4ML SYRINGE (J1650 PER 10MG) SC SCH (08:08)
[2023-04-19] MEDS: MULTIVITAMINS/MINERALS THERAP 1 TAB PO SCH (08:08)
[2023-04-19] MEDS: POTASSIUM CHLORIDE 10MEQ SR TABLET PO SCH ×2 (08:08→08:19)
[2023-04-19] MEDS: NICOTINE 21MG/24HR 1 EA TRANSDERMAL TD PRN (08:08)
[2023-04-19] MEDS: THIAMINE 100 MG TAB PO SCH (08:09)
[2023-04-19] MEDS: NALTREXONE 50 MG TAB PO SCH (08:09)
[2023-04-19] MEDS: OLANZapine 5 MG TAB PO SCH (08:09)
[2023-04-19] MEDS: GABAPENTIN 300 MG CAP PO SCH (08:09)
[2023-04-19] MEDS: FOLIC ACID 1MG TAB PO SCH (08:09)
[2023-04-19] MEDS ORDERED: FOLIC ACID 1MG TAB PO SCH (09:00)
[2023-04-19] MEDS ORDERED: MAGNESIUM OXIDE 400MG TAB (MAG-OX) PO SCH (09:00)
[2023-04-19 11:01] LABS: MAGNESIUM LEVEL 1.9 MG/DL (1.8-2.4); POTASSIUM SERUM 3.3 MMOL/L (3.5-5.1)
[2023-04-19] MEDS ORDERED: MAGN1TAB26 PO (11:17)
[2023-04-19] MEDS ORDERED: POTA-298 PO (11:17)
[2023-04-21] MEDS ORDERED: THIAMINE 100 MG TAB PO SCH (09:00)
== END 2023-04-19 11:36 | disposition home or self-care (01) | DRG 425 ==
LOC: M ED 10:41 → M ED INP 16:37 → ENRESERV 17:21 → M PCU 20:50
PROVIDERS: ADMIT Family Medicine; ATTEND Family Medicine
DX: E87.20 Acidosis, unspecified (principal); E83.42 Hypomagnesemia; B18.2 Chronic viral hepatitis C; F31.9 Bipolar disorder, unspecified; F10.20 Alcohol dependence, uncomplicated; K29.20 Alcoholic gastritis without bleeding; F90.9 Attention-deficit hyperactivity disorder, unspecified type; G47.00 Insomnia, unspecified; F17.290 Nicotine dependence, other tobacco product, uncomplicated; E87.6 Hypokalemia; Z88.1 Allergy status to other antibiotic agents; Z91.040 Latex allergy status; Z91.51 Personal history of suicidal behavior; Z79.899 Other long term (current) drug therapy; Z86.16 Personal history of COVID-19; Z20.822 Contact with and (suspected) exposure to COVID-19; Z60.9 Problem related to social environment, unspecified; Z91.52 Personal history of nonsuicidal self-harm

== ENCOUNTER 2023-04-20 15:52 | Outpatient (RCR) | payer OTHER ==
[~2023-04-20 15:52] MED LIST changes: +DIPH-435 PO; +LAMO25TA4 PO; +MAGN1TAB26 PO; +NEUR300C PO; +POTA-298 PO; -UNRESOLVED CLARIFICATION ENTRY XX SCH; +VITA100T28 PO
== END 2023-04-25 ==
LOC: M OUTALCOH 15:52
PROVIDERS: ATTEND Internal Medicine
DX: F10.20 Alcohol dependence, uncomplicated (principal); F16.10 Hallucinogen abuse, uncomplicated; F12.10 Cannabis abuse, uncomplicated; F17.200 Nicotine dependence, unspecified, uncomplicated

== ENCOUNTER 2023-05-10 19:13 | Inpatient (IN) | payer OTHER ==
[~2023-05-10] VITALS: Ht 160 cm; Wt 63.6 kg
[~2023-05-10 19:13] MED LIST changes: -GABA-283 PO; +GABA-284 PO
[2023-05-10 20:03] LABS: HEMATOCRIT 38.1 % (36.0-47.0); HEMOGLOBIN 13.1 g/dl (12.0-15.5); MEAN CORPUSCULAR HEMOGLOBIN 32.3 pg (27.0-33.0); MEAN CORPUSCULAR HGB CONC 34.4 g/dl (32.0-36.5); MEAN CORPUSCULAR VOLUME 94.1 fl (80.0-96.0); PLATELET COUNT, AUTOMATED 276 10^3/uL (150-450); RED BLOOD COUNT 4.05 10^6/uL (4.00-5.40); WHITE BLOOD COUNT 6.8 10^3/uL (4.0-10.0)
[2023-05-10] MEDS ORDERED: LORazepam 2 MG/ML 1ML VIAL IV STA (20:16)
[2023-05-10] MEDS ORDERED: NS 1,000 ML IV ONE (20:20)
[2023-05-10] MEDS ORDERED: ONDANSETRON 4MG 2ML VIAL IV ONE (20:20)
[2023-05-10 20:30] LABS: ETHYL ALCOHOL (ETHANOL) 0.114 % (0.000-0.010)
[2023-05-10 20:32] LABS: ACETAMINOPHEN LEVEL < 2.0 UG/ML (10.0-20.0); ALBUMIN 3.8 G/DL (3.2-5.2); ALKALINE PHOSPHATASE 73 U/L (46-116); ALT/SGPT 27 U/L (7.0-40); AST/SGOT 26 U/L (<34); BILIRUBIN,DIRECT < 0.1 MG/DL (<0.4); BILIRUBIN,TOTAL 0.2 MG/DL (0.3-1.2); BLOOD UREA NITROGEN 8 MG/DL (9-23); CALCIUM LEVEL 9.5 MG/DL (8.5-10.1); CARBON DIOXIDE LEVEL 26 MMOL/L (20-31); CHLORIDE LEVEL 99 MMOL/L (98-107); GLOMERULAR FILTRATION RATE > 60.0 (>60); GLUCOSE, FASTING 110 MG/DL (60-100); POTASSIUM SERUM 3.1 MMOL/L (3.5-5.1); SALICYLATE LEVEL < 3.0 MG/DL (<30); SODIUM LEVEL 140 MMOL/L (136-145); TOTAL PROTEIN 6.7 G/DL (5.7-8.2)
[2023-05-10 20:34] LABS: THYROID STIMULATING HORMONE 0.816 uIU/ML (0.55-4.78)
[2023-05-10 20:43] LABS: HCG, SERUM QUALITATIVE NEGATIVE (NEGATIVE)
[2023-05-10] MEDS ORDERED: POTASSIUM CHLORIDE 10MEQ SR TABLET PO ONE (21:05)
[2023-05-10] MEDS ORDERED: NICOTINE 21MG/24HR 1 EA TRANSDERMAL TD ONE (21:25)
[2023-05-11] MEDS ORDERED: MED REC IN PROGRESS XX SCH (00:35)
[2023-05-11] MEDS ORDERED: OXAZEPAM 15MG CAP PO ONE ×2 (06:10→12:55)
[2023-05-11 06:56] LABS: BARBITURATES URINE NEGATIVE (NEGATIVE); COCAINE METABOLITE URINE NEGATIVE (NEGATIVE)
[2023-05-11 06:57] LABS: BENZODIAZEPINES URINE NEGATIVE (NEGATIVE); METHADONE URINE NEGATIVE (NEGATIVE); OPIATES URINE NEGATIVE (NEGATIVE); PHENCYCLIDINE URINE NEGATIVE (NEGATIVE)
[2023-05-11 07:00] LABS: AMPHETAMINES LEVEL URINE POSITIVE (NEGATIVE); CANNABINOIDS URINE POSITIVE (NEGATIVE)
[2023-05-11] MEDS ORDERED: FOLIC ACID 1MG TAB PO SCH (09:00)
[2023-05-11] MEDS ORDERED: lamoTRIgine 100MG TAB PO SCH (09:00)
[2023-05-11] MEDS ORDERED: lamoTRIgine 25MG TAB PO SCH (09:00)
[2023-05-11] MEDS: GABAPENTIN 300 MG CAP PO SCH ×3 (09:00→20:22)
[2023-05-11] MEDS ORDERED: MULTIVITAMINS/MINERALS THERAP 1 TAB PO SCH (09:00)
[2023-05-11] MEDS ORDERED: ADDERALL 5 MG TAB PO SCH (09:00)
[2023-05-11] MEDS ORDERED: NALTREXONE 50 MG TAB PO SCH (09:00)
[2023-05-11] MEDS ORDERED: OLANZapine 5 MG TAB PO SCH (09:00)
[2023-05-11] MEDS ORDERED: THIAMINE 100 MG TAB PO SCH (09:00)
[2023-05-11] MEDS ORDERED: LAMO25TA4 PO (10:26)
[2023-05-11] MEDS ORDERED: LAMO100T80 PO (10:26)
[2023-05-11] MEDS ORDERED: LORazepam 2 MG TAB PO PRN (10:30)
[2023-05-11] MEDS ORDERED: MAALOX 30 ML SUSP *UDC PO PRN (14:15)
[2023-05-11] MEDS ORDERED: traZODone 50 MG TAB PO PRN (14:15)
[2023-05-11] MEDS ORDERED: IBUPROFEN 400MG TAB PO PRN (14:15)
[2023-05-11] MEDS ORDERED: ACETAMINOPHEN TAB 650MG DOSE (2X325MG) PO PRN (14:15)
[2023-05-11] MEDS ORDERED: ADDE30TA PO (14:24)
[2023-05-11] MEDS ORDERED: DIPH-319 PO (14:24)
[2023-05-11] MEDS ORDERED: NALT50TA4 PO (14:26)
[2023-05-11] MEDS ORDERED: HOME MED LIST COMPLETE! XX SCH (14:35)
[2023-05-11 16:30] VITALS: BP 121/77; TEMP 97.2; O2SAT 98
[2023-05-11] MEDS: LORazepam 2 MG TAB PO PRN ×2 (16:59→20:34)
[2023-05-11 18:30] VITALS: BP 125/81; TEMP 96.9; O2SAT 97
[2023-05-11] MEDS: THIAMINE 100 MG TAB PO SCH (20:22)
[2023-05-11] MEDS: QUEtiapine FUMARATE 100 MG TAB PO SCH (20:22)
[2023-05-11] MEDS: traZODone 50 MG TAB PO PRN (20:22)
[2023-05-11 20:29] VITALS: BP 123/89
[2023-05-11] MEDS ORDERED: QUEtiapine FUMARATE 100 MG TAB PO SCH (21:00)
[2023-05-11 22:30] VITALS: BP 134/67
[2023-05-12] MEDS: LORazepam 2 MG TAB PO PRN (06:04)
[2023-05-12 06:25] VITALS: BP 101/67
[2023-05-12 06:26] VITALS: BP 101/67; TEMP 98.2; O2SAT 99
[2023-05-12] MEDS ORDERED: ADDERALL 5 MG TAB PO SCH (08:00)
[2023-05-12] MEDS: lamoTRIgine 25MG TAB PO SCH (08:21)
[2023-05-12] MEDS: lamoTRIgine 100MG TAB PO SCH (08:22)
[2023-05-12] MEDS: NALTREXONE 50 MG TAB PO SCH (08:22)
[2023-05-12] MEDS: MULTIVITAMINS/MINERALS THERAP 1 TAB PO SCH (08:24)
[2023-05-12] MEDS: THIAMINE 100 MG TAB PO SCH ×2 (08:24→21:02)
[2023-05-12] MEDS: OLANZapine 5 MG TAB PO SCH (08:24)
[2023-05-12] MEDS: GABAPENTIN 300 MG CAP PO SCH ×3 (08:24→21:01)
[2023-05-12] MEDS: FOLIC ACID 1MG TAB PO SCH (08:25)
[2023-05-12 08:39] VITALS: BP 121/81; TEMP 97.6; O2SAT 98
[2023-05-12] MEDS ORDERED: chlordiazePOXIDE 25 MG CAP PO SCH (09:00)
[2023-05-12] MEDS ORDERED: MULTIVITAMINS/MINERALS THERAP 1 TAB PO SCH (09:00)
[2023-05-12] MEDS: NICOTINE 21MG/24HR 1 EA TRANSDERMAL TD PRN (09:15)
[2023-05-12] MEDS: chlordiazePOXIDE 25 MG CAP PO SCH ×3 (11:07→21:02)
[2023-05-12 14:30] VITALS: BP 133/90; TEMP 97.6; O2SAT 99
[2023-05-12] MEDS: traZODone 50 MG TAB PO PRN (21:02)
[2023-05-12] MEDS: QUEtiapine FUMARATE 100 MG TAB PO SCH (21:02)
[2023-05-13 05:58] VITALS: BP 92/69; TEMP 98.7; O2SAT 100
[2023-05-13 06:51] LABS: CHOLESTEROL RISK RATIO 2.61 (<5); HDL CHOLESTEROL 72.7 MG/DL (>40); LDL CHOLESTEROL 96.9 MG/DL (<100); NON-HDL-C 117.3 MG/DL
[2023-05-13] MEDS: lamoTRIgine 25MG TAB PO SCH (08:53)
[2023-05-13] MEDS: FOLIC ACID 1MG TAB PO SCH (08:53)
[2023-05-13] MEDS: MULTIVITAMINS/MINERALS THERAP 1 TAB PO SCH (08:53)
[2023-05-13] MEDS: GABAPENTIN 300 MG CAP PO SCH ×3 (08:53→21:01)
[2023-05-13] MEDS: OLANZapine 5 MG TAB PO SCH (08:53)
[2023-05-13] MEDS: chlordiazePOXIDE 25 MG CAP PO SCH ×3 (08:54→21:01)
[2023-05-13] MEDS: lamoTRIgine 100MG TAB PO SCH (08:54)
[2023-05-13] MEDS: NALTREXONE 50 MG TAB PO SCH (08:54)
[2023-05-13] MEDS: THIAMINE 100 MG TAB PO SCH ×2 (08:55→21:01)
[2023-05-13] MEDS: NICOTINE 21MG/24HR 1 EA TRANSDERMAL TD PRN (08:59)
[2023-05-13 14:23] VITALS: BP 117/69
[2023-05-13] MEDS: diphenhydrAMINE 25MG CAP PO PRN (15:23)
[2023-05-13 17:30] VITALS: BP 116/69; TEMP 97.8; O2SAT 97
[2023-05-13] MEDS: QUEtiapine FUMARATE 100 MG TAB PO SCH (21:00)
[2023-05-13] MEDS: traZODone 50 MG TAB PO PRN (21:01)
[2023-05-14 06:33] VITALS: BP 91/58; TEMP 97.1; O2SAT 98
[2023-05-14] MEDS: GABAPENTIN 300 MG CAP PO SCH ×3 (09:20→20:08)
[2023-05-14] MEDS: FOLIC ACID 1MG TAB PO SCH (09:20)
[2023-05-14] MEDS: lamoTRIgine 25MG TAB PO SCH (09:20)
[2023-05-14] MEDS: diphenhydrAMINE 25MG CAP PO PRN ×2 (09:20→20:08)
[2023-05-14] MEDS: OLANZapine 5 MG TAB PO SCH (09:20)
[2023-05-14] MEDS: MULTIVITAMINS/MINERALS THERAP 1 TAB PO SCH (09:20)
[2023-05-14] MEDS: lamoTRIgine 100MG TAB PO SCH (09:21)
[2023-05-14] MEDS: THIAMINE 100 MG TAB PO SCH (09:21)
[2023-05-14] MEDS: chlordiazePOXIDE 25 MG CAP PO SCH ×3 (09:21→20:07)
[2023-05-14] MEDS: NALTREXONE 50 MG TAB PO SCH (09:21)
[2023-05-14] MEDS: NICOTINE 21MG/24HR 1 EA TRANSDERMAL TD PRN (11:02)
[2023-05-14 14:00] VITALS: BP 108/64
[2023-05-14 14:32] VITALS: BP 108/64; TEMP 98.6; O2SAT 99
[2023-05-14 18:09] VITALS: BP 214/71; TEMP 98.3; O2SAT 96
[2023-05-14] MEDS: traZODone 50 MG TAB PO PRN (20:08)
[2023-05-14] MEDS: QUEtiapine FUMARATE 100 MG TAB PO SCH (20:08)
[2023-05-14 21:23] VITALS: BP 124/76
[2023-05-15 06:40] VITALS: BP 94/55; TEMP 97.9; O2SAT 98
[2023-05-15] MEDS: FOLIC ACID 1MG TAB PO SCH (09:14)
[2023-05-15] MEDS: lamoTRIgine 100MG TAB PO SCH (09:14)
[2023-05-15] MEDS: lamoTRIgine 25MG TAB PO SCH (09:14)
[2023-05-15] MEDS: NALTREXONE 50 MG TAB PO SCH (09:14)
[2023-05-15] MEDS: GABAPENTIN 300 MG CAP PO SCH ×3 (09:14→20:48)
[2023-05-15] MEDS: NICOTINE 21MG/24HR 1 EA TRANSDERMAL TD PRN (09:14)
[2023-05-15] MEDS: OLANZapine 5 MG TAB PO SCH (09:14)
[2023-05-15] MEDS: MULTIVITAMINS/MINERALS THERAP 1 TAB PO SCH (09:14)
[2023-05-15] MEDS: chlordiazePOXIDE 25 MG CAP PO SCH ×2 (09:14→20:48)
[2023-05-15] MEDS: diphenhydrAMINE 25MG CAP PO PRN ×3 (09:14→22:23)
[2023-05-15 16:47] VITALS: BP 111/56; TEMP 98
[2023-05-15] MEDS: QUEtiapine FUMARATE 100 MG TAB PO SCH (20:48)
[2023-05-15] MEDS: traZODone 50 MG TAB PO PRN (20:48)
[2023-05-16 06:22] VITALS: BP 109/56; TEMP 97.5; O2SAT 99
[2023-05-16] MEDS: GABAPENTIN 300 MG CAP PO SCH ×3 (09:00→20:03)
[2023-05-16] MEDS: FOLIC ACID 1MG TAB PO SCH (09:00)
[2023-05-16] MEDS: diphenhydrAMINE 25MG CAP PO PRN ×2 (09:00→17:16)
[2023-05-16] MEDS: NICOTINE 21MG/24HR 1 EA TRANSDERMAL TD PRN (09:00)
[2023-05-16] MEDS: OLANZapine 5 MG TAB PO SCH (09:00)
[2023-05-16] MEDS: lamoTRIgine 100MG TAB PO SCH (09:00)
[2023-05-16] MEDS: chlordiazePOXIDE 25 MG CAP PO SCH (09:01)
[2023-05-16] MEDS: MULTIVITAMINS/MINERALS THERAP 1 TAB PO SCH (09:01)
[2023-05-16] MEDS: NALTREXONE 50 MG TAB PO SCH (09:01)
[2023-05-16] MEDS: lamoTRIgine 25MG TAB PO SCH (09:01)
[2023-05-16 18:00] VITALS: BP 121/81; TEMP 97.6
[2023-05-16] MEDS: QUEtiapine FUMARATE 200 MG TAB PO SCH (20:02)
[2023-05-16] MEDS: traZODone 50 MG TAB PO PRN (20:59)
[2023-05-17 06:23] VITALS: BP 99/55; TEMP 97.1; O2SAT 99
[2023-05-17] MEDS: OLANZapine 5 MG TAB PO SCH (08:28)
[2023-05-17] MEDS: NALTREXONE 50 MG TAB PO SCH (08:28)
[2023-05-17] MEDS: lamoTRIgine 25MG TAB PO SCH (08:28)
[2023-05-17] MEDS: lamoTRIgine 100MG TAB PO SCH (08:28)
[2023-05-17] MEDS: GABAPENTIN 300 MG CAP PO SCH ×3 (08:28→20:05)
[2023-05-17] MEDS: MULTIVITAMINS/MINERALS THERAP 1 TAB PO SCH (08:29)
[2023-05-17] MEDS: chlordiazePOXIDE 25 MG CAP PO SCH (08:29)
[2023-05-17] MEDS: FOLIC ACID 1MG TAB PO SCH (08:29)
[2023-05-17] MEDS: NICOTINE 21MG/24HR 1 EA TRANSDERMAL TD PRN (08:30)
[2023-05-17] MEDS: MOM 30ML SUSPENSION UDC PO PRN (09:49)
[2023-05-17] MEDS: diphenhydrAMINE 25MG CAP PO PRN ×2 (15:17→21:44)
[2023-05-17] MEDS: RIVAROXABAN 10MG TAB (XARELTO) PO SCH (18:35)
[2023-05-17 19:16] VITALS: BP 126/65; TEMP 98.4
[2023-05-17] MEDS: QUEtiapine FUMARATE 200 MG TAB PO SCH (20:05)
[2023-05-17] MEDS: traZODone 50 MG TAB PO PRN (21:44)
[2023-05-18 06:38] VITALS: BP 90/52; TEMP 97.3; O2SAT 99
[2023-05-18] MEDS: lamoTRIgine 25MG TAB PO SCH (08:20)
[2023-05-18] MEDS: GABAPENTIN 300 MG CAP PO SCH ×3 (08:20→20:07)
[2023-05-18] MEDS: MULTIVITAMINS/MINERALS THERAP 1 TAB PO SCH (08:20)
[2023-05-18] MEDS: OLANZapine 5 MG TAB PO SCH (08:20)
[2023-05-18] MEDS: FOLIC ACID 1MG TAB PO SCH (08:20)
[2023-05-18] MEDS: NALTREXONE 50 MG TAB PO SCH (08:20)
[2023-05-18] MEDS: lamoTRIgine 100MG TAB PO SCH (08:21)
[2023-05-18] MEDS: NICOTINE 21MG/24HR 1 EA TRANSDERMAL TD PRN (08:23)
[2023-05-18] MEDS: diphenhydrAMINE 25MG CAP PO PRN ×2 (10:32→20:07)
[2023-05-18] MEDS: MOM 30ML SUSPENSION UDC PO PRN (14:04)
[2023-05-18 15:53] VITALS: BP 126/87; TEMP 98.8; O2SAT 97
[2023-05-18] MEDS: RIVAROXABAN 10MG TAB (XARELTO) PO SCH (16:51)
[2023-05-18] MEDS: QUEtiapine FUMARATE 200 MG TAB PO SCH (20:07)
[2023-05-18] MEDS: traZODone 50 MG TAB PO PRN (21:57)
[2023-05-19 07:03] VITALS: BP 112/74; TEMP 98.7; O2SAT 99
[2023-05-19 07:18] VITALS: BP 100/58; TEMP 97.8; O2SAT 100
[2023-05-19] MEDS: GABAPENTIN 300 MG CAP PO SCH ×2 (08:29→15:18)
[2023-05-19] MEDS: diphenhydrAMINE 25MG CAP PO PRN (08:29)
[2023-05-19] MEDS: NALTREXONE 50 MG TAB PO SCH (08:29)
[2023-05-19] MEDS: lamoTRIgine 100MG TAB PO SCH (08:29)
[2023-05-19] MEDS: FOLIC ACID 1MG TAB PO SCH (08:29)
[2023-05-19] MEDS: MULTIVITAMINS/MINERALS THERAP 1 TAB PO SCH (08:29)
[2023-05-19] MEDS: lamoTRIgine 25MG TAB PO SCH (08:29)
[2023-05-19] MEDS: OLANZapine 5 MG TAB PO SCH (08:29)
[2023-05-19] MEDS: NICOTINE 21MG/24HR 1 EA TRANSDERMAL TD PRN (08:30)
[2023-05-19] MEDS ORDERED: NICO21PAT TD (10:36)
[2023-05-19] MEDS ORDERED: LAMO25TA4 PO (10:36)
[2023-05-19] MEDS ORDERED: LAMO100T80 PO (10:36)
[2023-05-19] MEDS ORDERED: OLAN1TAB16 PO (10:36)
[2023-05-19] MEDS ORDERED: NALT50TA4 PO (10:36)
[2023-05-19] MEDS ORDERED: QUET200T2 PO (10:36)
[2023-05-19] MEDS ORDERED: TRAZ-252 PO (10:36)
[2023-05-19] MEDS ORDERED: XARE10TA PO (10:36)
== END 2023-05-19 15:20 | disposition home or self-care (01) | DRG 753 ==
LOC: M ED 19:13 → M ED INP 05-11 14:11 → M PSY 05-11 16:31
PROVIDERS: ADMIT Student in an Organized Health Care Education/Training Program; ATTEND Student in an Organized Health Care Education/Training Program
DX: F31.9 Bipolar disorder, unspecified (principal); F60.3 Borderline personality disorder; F10.239 Alcohol dependence with withdrawal, unspecified; F12.10 Cannabis abuse, uncomplicated; F15.10 Other stimulant abuse, uncomplicated; F90.9 Attention-deficit hyperactivity disorder, unspecified type; F43.10 Post-traumatic stress disorder, unspecified; Z91.52 Personal history of nonsuicidal self-harm; Z90.49 Acquired absence of other specified parts of digestive tract; Z81.8 Family history of other mental and behavioral disorders; Z56.0 Unemployment, unspecified; F50.2 Bulimia nervosa; F60.89 Other specific personality disorders; R45.851 Suicidal ideations; Z79.899 Other long term (current) drug therapy; Z88.0 Allergy status to penicillin; Z20.822 Contact with and (suspected) exposure to COVID-19

== ENCOUNTER 2023-05-25 08:40 | Outpatient (RCR) | payer OTHER ==
[~2023-05-25 08:40] MED LIST changes: +DIPH-319 PO; +QUET200T2 PO; +XARE10TA PO
== END 2023-05-26 ==
LOC: M OUTALCOH 08:40
PROVIDERS: ATTEND Psychiatry & Neurology Child & Adolescent Psychiatry
DX: F10.20 Alcohol dependence, uncomplicated (principal); F16.10 Hallucinogen abuse, uncomplicated; F12.10 Cannabis abuse, uncomplicated; F17.200 Nicotine dependence, unspecified, uncomplicated